=== PATIENT | male | born 1935 | race Caucasian/White ===

== ENCOUNTER → 2016-02-14 | Outpatient (CLI) | payer OTHER, MEDICARE ==
--- NOTE | 2016-02-14 11:25 | CT ---
CT Head (Without Contrast) February 14, 2016 Indication: Headache for one month. Technique: Standard noncontrast head CT protocol utilizing 5 mm thick collimated slices and field of view of 23 cm. Dose reduction techniques were utilized. Comparison: None. Findings: No intracranial hemorrhage, subdural hematoma, mass or swelling. The ventricular system is normal caliber and midline. Dill-white matter attenuation is normal. No evidence of ischemia. The sag ittal sinus and intracranial arterial system have normal density. The paranasal sinuses are clear. Th e right globe is absent. Impression: Normal brain. No intracranial hemorrhage, mass, or hydrocephalus. No explanation for head ache.
== END ==
LOC: CIMAGING 10:10
PROVIDERS: ATTEND Psychiatry & Neurology Neurology
DX: R51 Headache (principal)
CPT/HCPCS: 70450-PO

== ENCOUNTER 2017-02-11 09:41 | Inpatient (IN) | payer OTHER, MEDICARE ==
--- NOTE | 2017-02-11 10:09 | CPEKG ---
Heart Rate: 76 RR Interval: 789 P-R Interval: 300 QRSD Interval: 134 QT Interval: 432 QTC Interval: 486 P [place]: 0 QRS [place]: -50 T Wave [place]: 106 EKG Severity - ABNORMAL ECG - EKG Impression: VENTRICULAR-PACED RHYTHM Electronically Signed By: Ivania Das 11-Feb-2017 15:21:47
[2017-02-11] MEDS ORDERED: NS 1,000 ML IV ONE ×2 (10:17→14:09)
[2017-02-11 10:28] LABS: PLATELET COUNT 156 10^3/uL (150-400)
[2017-02-11] MEDS ORDERED: ONDANSETRON 4 MG/2 ML VIAL IVP ONE (10:55)
--- NOTE | 2017-02-11 10:57 | EDPHY ---
H & P Time Seen by Provider: 02/11/17 10:16 HPI/ROS: CHIEF COMPLAINT: Cough, fever HISTORY OF PRESENT ILLNESS: 81-year-old male presents with cough and fever. Onset of runny nose, sore throat and cough 1 week ago. Associated with myalgias and fever. The cough is productive of yellowish phlegm. This morning he felt so weak that he was unable to get out of bed. He feels that he might fall. He has been tolerating oral fluids and food well, but has a decreased appetite. He received a flu vaccination this year. No shortness of breath REVIEW OF SYSTEMS: Eyes: Vision loss, no acute changes ENT: No sore throat Cardiac: Chest pain with coughing Gastrointestinal: no vomiting, no abdominal pain Genitourinary: no dysuria Skin: No rash Neurological: No headache Psychiatric: No depression Past Medical/Surgical History: Coronary artery disease Vision loss Social History: Retired physician Smoking Status: Never smoked Physical Exam: General Appearance: Alert, pleasant, nontoxic Eyes: Pupils equal and round, conjunctival drainage right eye ENT, Mouth: Mucous membranes dry Neck: Normal inspection Respiratory: Rales at the bases Cardiovascular: Regular rate and rhythm Gastrointestinal: Abdomen is soft and nontender Neurological: A&O, nonfocal, gait not assessed Skin: Warm and dry Extremities: Normal inspection Psychiatric: Mood and affect normal Constitutional: Initial Vital Signs Temperature (C) 36.3 C 02/11/17 09:48 Heart Rate 80 02/11/17 09:48 Respiratory Rate 18 02/11/17 09:48 Blood Pressure 145/83 H 02/11/17 09:48 O2 Sat (%) 90 L 02/11/17 09:48 O2 Delivery Mode Nasal Cannula O2 (L/minute) 3 Allergies/Adverse Reactions: No Known Allergies Allergy (Unverified 02/11/17 09:46) Home Medications: Medication Instructions Recorded Acetaminophen [Tylenol 325mg (*)] 650 mg PO Q8HRS PRN 02/11/17 Aspirin [Aspirin 81mg (*)] 162 mg PO DAILY 02/11/17 Brimonidine 0.15% [ALPHAGAN P 1 drops LEFTEYE Q8 02/11/17 0.15% (RX)] Dorzolamide/Timolol [Cosopt (*)] 1 drops LEFTEYE BID 02/11/17 Latanoprost 0.005% [Xalatan 0.005% 1 drops LEFTEYE HS 02/11/17 (*)] Pantoprazole Sodium [Protonix 40mg 40 mg PO HS 02/11/17 (*)] Simvastatin [Zocor] 20 mg PO HS 02/11/17 Medical Decision Making - Diagnostics Imaging Results: Chest x-ray reveals cardiomegaly, no infiltrate. Imaging: I viewed and interpreted images myself ED Course/Re-evaluation: This patient presents with likely influenza and/or pneumonia. He also appears dehydrated on exam, which may be causing his generalized weakness. IV normal saline 1 L given. Chest x-ray reveals no evidence of pneumonia. Influenza swab is positive. He has been ill for 5 days, so Tamiflu is unlikely to be helpful in this patient. Results discussed with the patient. He continues to be quite weak and has difficulty walking. I will admit him for observation. The hospitalist service was consulted. Differential Diagnosis: Differential diagnosis includes pyelonephritis, cholecystitis, influenza, cellulitis, pneumonia, abscess, meningitis. - Data Points Laboratory Results: Laboratory Results 02/11/17 10:15 02/11/17 10:15 Medications Given: Acetaminophen (Tylenol) 1,000 mg PO Q6 PRN PRN Reason: Pain, Mild/Fever, Can Take PO Stop: 08/10/17 14:08 Last Admin: 02/12/17 05:17 Dose: 1,000 mg Albuterol/Ipratropium (Duoneb) 3 ml IH QID [facility] Stop: 08/10/17 15:59 Last Admin: 02/12/17 06:02 Dose: 3 ml Atorvastatin Calcium (Lipitor) 10 mg PO HS [facility] Stop: 08/10/17 20:59 Last Admin: 02/11/17 21:15 Dose: 10 mg Brimonidine Tartrate (Alphagan P 0.15%) 1 drops LEFTEYE Q8 ALICE Stop: 08/10/17 21:59 Last Admin: 02/12/17 05:18 Dose: 1 drop Dorzolamide/Timolol (Cosopt) 1 drops LEFTEYE BID ALICE Stop: 08/10/17 20:59 Last Admin: 02/11/17 21:14 Dose: 1 drop Guaifenesin (Mucinex) 600 mg PO BID [facility] Stop: 07/03/18 20:59 Last Admin: 02/11/17 21:15 Dose: 600 mg Potassium Chloride/Sodium Chloride (Ns W/ 20 Kcl/L) 1,000 mls @ 75 mls/hr IV CONT ALICE Stop: 08/10/17 14:14 Last Admin: 02/12/17 05:18 Dose: 1,000 mls Latanoprost (Xalatan 0.005%) 1 drops LEFTEYE HS [facility] Stop: 08/10/17 20:59 Last Admin: 02/11/17 21:12 Dose: 1 drop Pantoprazole Sodium (Protonix) 40 mg PO HS [facility] Stop: 08/10/17 20:59 Last Admin: 02/11/17 21:16 Dose: 40 mg Discontinued Medications Acetaminophen (Tylenol) 650 mg PO Q4HRS PRN PRN Reason: Pain, Mild/Fever, Can Take PO Stop: 08/10/17 14:08 Last Admin: 02/11/17 15:38 Dose: 650 mg Acetaminophen (Tylenol) 325 mg PO ONCE ONE Stop: 02/11/17 16:56 Last Admin: 02/11/17 17:05 Dose: 325 mg Albuterol/Ipratropium (Duoneb) 3 ml IH EDNOW ONE Stop: 02/11/17 11:21 Last Admin: 02/11/17 14:01 Dose: Not Given Sodium Chloride (Ns) 1,000 mls @ 0 mls/hr IV ONCE ONE; Wide Open PRN Reason: Protocol Stop: 02/11/17 10:18 Last Admin: 02/11/17 10:58 Dose: 1,000 mls Sodium Chloride (Ns) 1,000 mls @ 3,000 mls/hr IV ONCE ONE Stop: 02/11/17 14:28 Last Admin: 02/11/17 15:39 Dose: 1,000 mls Methylprednisolone Sodium Succinate (Solu-Medrol) 125 mg IVP EDNOW ONE Stop: 02/11/17 11:21 Last Admin: 02/11/17 15:42 Dose: Not Given Ondansetron HCl (Zofran) 4 mg IVP EDNOW ONE Stop: 02/11/17 10:56 Last Admin: 02/11/17 10:58 Dose: 4 mg Departure - Departure Disposition: [facility] Acute Clinical Impression: Influenza A Condition: Fair
[2017-02-11] MEDS ORDERED: IPRATROPIUM/ALBUTEROL 3 ML DEYVIAL IH ONE (11:20)
[2017-02-11] MEDS ORDERED: methylPREDNISolone SOD SUCC 125 MG/2 ML VIAL IVP ONE (11:20)
[2017-02-11] MEDS ORDERED: ONDANSETRON 4 MG/2 ML VIAL IVP PRN (14:09)
[2017-02-11] MEDS ORDERED: ONDANSETRON DISINTEGRATING 4 MG TAB PO PRN (14:09)
[2017-02-11] MEDS ORDERED: IBUPROFEN 200 MG TAB PO PRN (14:09)
[2017-02-11] MEDS ORDERED: ALBUTEROL 3 ML DEYVIAL IH PRN (14:09)
[2017-02-11] MEDS ORDERED: ACETAMINOPHEN 325 MG TAB PO PRN (14:09)
--- NOTE | 2017-02-11 15:09 | GHP ---
[f rep st] HISTORY AND PHYSICAL DATE OF ADMISSION: 02/11/2017 CHIEF COMPLAINT: Fever, chills, cough. HISTORY OF PRESENT ILLNESS: This is a 81-year-old male who presents with 5 days worth of body aches, fevers and chills, and cough. He does have a little bit of shortness of breath. His cough is somew hat productive, mostly clear sputum, sometimes a little bit yellow or green. He gets a little bit of chest pain with coughing. His is also sick. REVIEW OF SYSTEMS: A 10-point review of systems was obtained and was negative. PAST MEDICAL HISTORY: 1. Coronary artery disease, status post stent in 2012. 2. Pacemaker. 3. Glaucoma. SOCIAL HISTORY: No smoking. He is retired physician. FAMILY HISTORY: Reviewed and noncontributory. PHYSICAL EXAMINATION: VITAL SIGNS: Afebrile. Blood pressure is 139/69. Oxygen saturation is 90% o n room air and 94% on 2 L. GENERAL: The patient is well developed, although still appearing in no a pparent distress HEENT: Nonicteric sclerae. Extraocular movements intact. Dry mucous membranes. N BOBBY: Supple. LUNGS: Good effort. Some coarse rhonchi bilaterally. No wheezing. Slightly decreas ed breath sounds. CARDIOVASCULAR: Regular rate and rhythm. No murmurs or gallops. ABDOMEN: Posit aric bowel sounds. Soft, nontender, nondistended. EXTREMITIES: No clubbing, cyanosis, or edema. SK IN: Without rash. Warm, dry, intact. NEUROLOGIC: Alert and oriented x3. Moving all 4 extremities equally. PSYCH: Normal mood and affect. LABORATORY: White count 7, hemoglobin 15. Lactate is normal. Chemistries normal. Flu is positive. Chest x-ray personally reviewed and interpreted shows some cardiomegaly, but no infiltrate. EKG pers onally reviewed and interpreted shows a paced rhythm. ASSESSMENT: This is a 81-year-old male presenting with acute influenza. PLAN: 1. Acute influenza. He has been sick for some time. He has been sick for at least 5 days. I do no t think that Tamiflu will be useful at this point. There is a question if there is another evolving superimposed bacterial infection. We will check a procalcitonin today. We will give IV fluids and n ebulizer treatments and see how he feels. If tomorrow he still not feeling well, could consider some thing like a Z-Nasim. Patient is asking if a Z-Nasim might be helpful. 2. Coronary artery disease. Continue his medications. 3. Pacemaker. /[id number]/MODL
[2017-02-11] MEDS: IPRATROPIUM/ALBUTEROL 3 ML DEYVIAL IH SCH ×2 (15:19→21:54)
[2017-02-11] MEDS: NS W/ 20 KCl/L 1,000 ML IV SCH (16:49)
[2017-02-11] MEDS ORDERED: ACETAMINOPHEN 325 MG TAB PO ONE (16:55)
[2017-02-11] MEDS ORDERED: NON-FORMULARY NEW DRUG (Simvastatin [Zocor] 20 MG) PO SCH (21:00)
[2017-02-11] MEDS: LATANOPROST 0.005% 2.5 ML OPHT DROPS LEFTEYE SCH (21:12)
[2017-02-11] MEDS: BRIMONIDINE 0.15% 5 ML OPHT.BTL LEFTEYE SCH (21:14)
[2017-02-11] MEDS: DORZOLAMIDE/TIMOLOL 10 ML OPHT.BTL LEFTEYE SCH (21:14)
[2017-02-11] MEDS: ATORVASTATIN CALCIUM 10 MG TAB PO SCH (21:15)
[2017-02-11] MEDS: guaiFENesin 600 MG TAB.ER PO SCH (21:15)
[2017-02-11] MEDS: PANTOPRAZOLE SODIUM 40 MG TAB PO SCH (21:16)
[2017-02-11] MEDS: ACETAMINOPHEN 500 MG TAB PO PRN (21:27)
[2017-02-11] MEDS ORDERED: BRIMONIDINE 0.1% 5 ML OPHT.BTL LEFTEYE SCH (22:00)
[2017-02-12] MEDS: ACETAMINOPHEN 500 MG TAB PO PRN ×2 (05:17→16:29)
[2017-02-12] MEDS: BRIMONIDINE 0.15% 5 ML OPHT.BTL LEFTEYE SCH ×3 (05:18→21:27)
[2017-02-12] MEDS: NS W/ 20 KCl/L 1,000 ML IV SCH ×2 (05:18→23:49)
[2017-02-12] MEDS: IPRATROPIUM/ALBUTEROL 3 ML DEYVIAL IH SCH ×4 (06:02→20:31)
[2017-02-12] MEDS: ASPIRIN 81 MG CHEWABLE TAB PO SCH (09:35)
[2017-02-12] MEDS: guaiFENesin 600 MG TAB.ER PO SCH ×2 (09:35→21:27)
[2017-02-12] MEDS: ENOXAPARIN 40 MG/0.4 ML SYR SC SCH (09:35)
[2017-02-12] MEDS: DORZOLAMIDE/TIMOLOL 10 ML OPHT.BTL LEFTEYE SCH ×2 (09:43→21:27)
[2017-02-12] MEDS ORDERED: NITROGLYCERIN 0.4 MG BTL SL PRN (10:19)
[2017-02-12] MEDS ORDERED: CALCIUM CARBONATE 500 MG CHEWABLE TAB PO PRN (10:19)
[2017-02-12] MEDS: PANTOPRAZOLE SODIUM 40 MG TAB PO SCH ×3 (10:33→22:00)
[2017-02-12] MEDS: predniSONE 20 MG TAB PO SCH (10:34)
[2017-02-12] MEDS: AZITHROMYCIN IV 500 MG in D5W 250 ML IV SCH (10:39)
[2017-02-12] MEDS ORDERED: RANITIDINE SYRUP 15 MG/1 ML UDSYR PO SCH (11:30)
--- NOTE | 2017-02-12 11:34 | ASMTCMCOM ---
CM Note CM Note Notes: Patient admitted with probable influenza and pneumonia. 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 I do not anticipate that he will have any discharge needs, but PT/OT have been ordered and are pending. We will follow. Date Signed: 02/12/2017 11:32 AM Electronically Signed By:Savannah Huynh RN
--- NOTE | 2017-02-12 14:53 | HOSPPROG ---
Hospitalist Progress Note Assessment/Plan: 81y male with weakness and cough. First encounter, chart reviewed. #Flu cont supportive care has been sick for days #GERD tums, protonix, zantac chronic needs outpt fu add troponin #Acute hypoxemia in the setting of acute illness #Hx CAD monitor close pt takes 4 nitro a day needs further therapy with cards outpt #Weakness in setting of acute illness PT/OT #Bumped procalcitonin start zpak #Dispo unclear given acute illness change to inpt will remain in hospital another 1-2 days Subjective: Feeling terrible. C/O gerd and weakness. Objective: Vital Signs Temp Pulse Resp BP Pulse Ox 36.5 C 69 20 119/59 L 94 02/12/17 14:28 02/12/17 14:28 02/12/17 14:28 02/12/17 14:28 02/12/17 14:28 02/11/17 02/12/17 02/13/17 05:59 05:59 05:59 Intake Total 4125 Balance 4125 - Physical Exam Constitutional: appears nourished, not in pain, chronically ill appearing Eyes: PERRL, anicteric sclera, EOMI Ears, Nose, Mouth, Throat: moist mucous membranes, hearing normal, ears appear normal Cardiovascular: regular rate and rhythym, No JVD, No edema Respiratory: no respiratory distress, reduced air movement, rhonchi Gastrointestinal: normoactive bowel sounds, No tenderness, No ascites Skin: warm, normal color, No erythema Musculoskeletal: normal joint ROM, no joint effusions, generalized weakness Neurologic: AAOx3 Psychiatric: interacting appropriately, not anxious, not encephalopathic, thought process linear ICD10 Worksheet Patient Problems: Problems Problem Status Onset Influenza A Acute
--- NOTE | 2017-02-12 16:02 | PDMN ---
Medical Necessity Medical necessity: change to IP; los>2mn for influenza, with continued hypoxemia with O2 @ 6L, weakness, GERD symptoms; initiate abx, PT/OT evas, check troponin, and continue supportive care; comorbid CAD ; per order and progress note 02/12/17
[2017-02-12] MEDS: LATANOPROST 0.005% 2.5 ML OPHT DROPS LEFTEYE SCH (21:27)
[2017-02-12] MEDS: ATORVASTATIN CALCIUM 10 MG TAB PO SCH (21:27)
[2017-02-13] MEDS: ACETAMINOPHEN 500 MG TAB PO PRN ×3 (03:21→21:13)
[2017-02-13] MEDS: IPRATROPIUM/ALBUTEROL 3 ML DEYVIAL IH SCH ×4 (05:41→21:53)
[2017-02-13] MEDS: BRIMONIDINE 0.15% 5 ML OPHT.BTL LEFTEYE SCH ×3 (06:20→21:06)
[2017-02-13] MEDS: ASPIRIN 81 MG CHEWABLE TAB PO SCH (08:45)
[2017-02-13] MEDS: guaiFENesin 600 MG TAB.ER PO SCH ×2 (08:45→21:08)
[2017-02-13] MEDS: predniSONE 20 MG TAB PO SCH (08:46)
[2017-02-13] MEDS: PANTOPRAZOLE SODIUM 40 MG TAB PO SCH ×2 (08:46→21:08)
[2017-02-13] MEDS: AZITHROMYCIN IV 500 MG in D5W 250 ML IV SCH (08:47)
[2017-02-13] MEDS: ENOXAPARIN 40 MG/0.4 ML SYR SC SCH (08:47)
[2017-02-13] MEDS: DORZOLAMIDE/TIMOLOL 10 ML OPHT.BTL LEFTEYE SCH ×2 (08:47→21:06)
[2017-02-13] MEDS: RANITIDINE HCL 150 MG/10 ML UDCUP PO SCH (08:48)
--- NOTE | 2017-02-13 12:54 | HOSPPROG ---
Hospitalist Progress Note Assessment/Plan: 81 yo male admited with COB and cough, weakness. Noted to be hypoxic, SOB, purulent cough still. continues to feel weak and cough. Patient new to me today. chart reviewed #Flu cont supportive care has been sick for days #GERD tums, protonix, zantac chronic needs outpt fu add troponin #Acute hypoxemia in the setting of acute illness. Does not use O2 at home, no h/o tobacco or COPD #Hx CAD: no chest pain. Had chest pain only with cough. No exertional chest pain. h/o stent in RCA 08/2016 monitor close pt takes 4 nitro a day needs further therapy with cards outpt #Weakness in setting of acute illness PT/OT #Bumped procalcitonin start zpak #Dispo unclear given acute illness change to inpt will remain in hospital another 1-2 days Subjective: appears weak and tired, cough, purulent cough Objective: Vital Signs Temp Pulse Resp BP Pulse Ox 36.3 C 60 18 108/54 L 95 02/13/17 11:11 02/13/17 11:11 02/13/17 11:11 02/13/17 11:11 02/13/17 11:11 02/12/17 02/13/17 02/14/17 05:59 05:59 05:59 Intake Total 879 842 Output Total 790 Balance 89 842 - Time Spent With Patient Time Spent with Patient: greater than 35 minutes Time Spent with Patient: Greater than 35 minutes spent on this patients care, greater than 50% of time spent counseling, educating, and coordinating care regarding the above mentioned plan. - Pending Discharge Pending Discharge Within 24 Hours: No Pending Discharge Within 48 Hours: No - Physical Exam Constitutional: other (acute ill appearing) Eyes: PERRL Ears, Nose, Mouth, Throat: moist mucous membranes Cardiovascular: regular rate and rhythym, systolic murmur Respiratory: reduced air movement, inspiratory crackles, bronchial breath sounds , rhonchi Gastrointestinal: normoactive bowel sounds, soft, non-tender abdomen, no palpable masses Genitourinary: no bladder fullness Skin: warm Musculoskeletal: generalized weakness Neurologic: AAOx3, CN II-XII Intact Psychiatric: interacting appropriately ICD10 Worksheet Patient Problems: Problems Problem Status Onset Influenza A Acute
[2017-02-13] MEDS: NS W/ 20 KCl/L 1,000 ML IV SCH (14:06)
[2017-02-13] MEDS: LATANOPROST 0.005% 2.5 ML OPHT DROPS LEFTEYE SCH (21:06)
[2017-02-13] MEDS: ATORVASTATIN CALCIUM 10 MG TAB PO SCH (21:08)
[2017-02-14] MEDS: BRIMONIDINE 0.15% 5 ML OPHT.BTL LEFTEYE SCH ×3 (06:25→20:59)
[2017-02-14] MEDS: IPRATROPIUM/ALBUTEROL 3 ML DEYVIAL IH SCH ×4 (06:30→21:17)
[2017-02-14] MEDS: ACETAMINOPHEN 500 MG TAB PO PRN ×2 (08:39→21:12)
[2017-02-14] MEDS: ASPIRIN 81 MG CHEWABLE TAB PO SCH (08:41)
[2017-02-14] MEDS: guaiFENesin 600 MG TAB.ER PO SCH ×2 (08:41→20:55)
[2017-02-14] MEDS: predniSONE 20 MG TAB PO SCH (08:41)
[2017-02-14] MEDS: AZITHROMYCIN IV 500 MG in D5W 250 ML IV SCH (08:44)
[2017-02-14] MEDS: ENOXAPARIN 40 MG/0.4 ML SYR SC SCH (08:44)
[2017-02-14] MEDS: DORZOLAMIDE/TIMOLOL 10 ML OPHT.BTL LEFTEYE SCH ×2 (08:56→20:58)
[2017-02-14] MEDS: RANITIDINE HCL 150 MG/10 ML UDCUP PO SCH (09:45)
--- NOTE | 2017-02-14 15:35 | HOSPPROG ---
Hospitalist Progress Note Assessment/Plan: 81 yo male admited with COB and cough, weakness. Noted to be hypoxic, SOB, purulent cough still. continues to feel weak and cough. Cough is a major difficulty along with hypoxemia as the both continue. Cough capping awake all last night. -Flu: Influenza positive on admission on 02/12: S the patient is sick enough to be in the hospital going to start Tamiflu today as he persists with cough some bronchospasm and hypoxemia. Though there is no clear evidence that would improve the matter it certainly can't heard. -cough, persistent: There is a history of coronary disease with a stent in the RCA though no history of CHF. He does have a persistent cough and or rales in both lungs. JVD is does not appear to be elevated. Plan to stop IV fluids and obtain a cardiac echo and continue his current pulmonary care and antitussives care. Patient's procalcitonin was slightly elevated and he was started on a Z- Nasim and he is in his 2nd day. He slowly improving -GERD: This is a chronic condition for which she takes Tums Protonix and Zantac. -Acute hypoxemia: This is new as the patient normally is physically active and has run in races recently. He does not usually require O2. As he improves he may require home O2. There is no history of tobacco or COPD. Hx CAD: no chest pain. Had chest pain only with cough. No exertional chest pain. h/o stent in RCA 08/2016. Cardiac echo today. He is known to take for nitroglycerin a day for prox complaints of chest pain. 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 PT is involve the knee has a can a walk in the pink with O2. -Dispo unclear given acute illness change to inpt will remain in hospital another 1-2 days Subjective: I was unable to sleep all last night due to coughing. Denies ani chest pain no hemoptysis no nausea vomiting or diarrhea he is eating a little in taking good fluid intake Objective: Vital Signs Temp Pulse Resp BP Pulse Ox 36.9 C 72 16 131/77 H 93 02/14/17 12:00 02/14/17 12:00 02/14/17 12:00 02/14/17 12:00 02/14/17 12:00 02/13/17 02/14/1702/15/18 05:59 05:59 05:59 Intake Total 879 0902 Output Total 790 917 250 Balance 89 2167 -250 - Time Spent With Patient Time Spent with Patient: greater than 35 minutes Time Spent with Patient: Greater than 35 minutes spent on this patients care, greater than 50% of time spent counseling, educating, and coordinating care regarding the above mentioned plan. - Pending Discharge Pending Discharge Within 24 Hours: No Pending Discharge Within 48 Hours: No - Physical Exam Constitutional: chronically ill appearing Eyes: PERRL, other (Right eye is been lost vision during a surgery for glaucoma. ) Ears, Nose, Mouth, Throat: moist mucous membranes, hard of hearing Cardiovascular: regular rate and rhythym, no murmur, rub, or gallop Respiratory: reduced air movement, inspiratory crackles, bronchial breath sounds , rhonchi Gastrointestinal: normoactive bowel sounds, soft, non-tender abdomen, no palpable masses Genitourinary: no bladder fullness Skin: warm Musculoskeletal: generalized weakness Neurologic: AAOx3, CN II-XII Intact, other (No vision in the right eye) Psychiatric: interacting appropriately ICD10 Worksheet Patient Problems: Problems Problem Status Onset Influenza A Acute
[2017-02-14] MEDS ORDERED: guaiFENesin/CODEINE PHOS 10 ML UDCUP PO PRN (15:38)
[2017-02-14] MEDS: OSELTAMIVIR PHOSPHATE 75 MG CAP PO SCH (18:31)
[2017-02-14] MEDS: ATORVASTATIN CALCIUM 10 MG TAB PO SCH (20:55)
[2017-02-14] MEDS: PANTOPRAZOLE SODIUM 40 MG TAB PO SCH (20:55)
[2017-02-14] MEDS: LATANOPROST 0.005% 2.5 ML OPHT DROPS LEFTEYE SCH (20:58)
[2017-02-15] MEDS: IPRATROPIUM/ALBUTEROL 3 ML DEYVIAL IH SCH ×4 (05:40→20:36)
[2017-02-15 05:57] LABS: PLATELET COUNT 267 10^3/uL (150-400)
[2017-02-15] MEDS: BRIMONIDINE 0.15% 5 ML OPHT.BTL LEFTEYE SCH ×3 (06:33→21:08)
[2017-02-15] MEDS: predniSONE 20 MG TAB PO SCH (09:30)
[2017-02-15] MEDS: DORZOLAMIDE/TIMOLOL 10 ML OPHT.BTL LEFTEYE SCH ×2 (09:31→21:08)
[2017-02-15] MEDS: OSELTAMIVIR PHOSPHATE 75 MG CAP PO SCH ×2 (09:31→17:05)
[2017-02-15] MEDS: ASPIRIN 81 MG CHEWABLE TAB PO SCH (09:31)
[2017-02-15] MEDS: guaiFENesin 600 MG TAB.ER PO SCH ×2 (09:31→21:05)
[2017-02-15] MEDS: ENOXAPARIN 40 MG/0.4 ML SYR SC SCH (09:31)
[2017-02-15] MEDS: RANITIDINE HCL 150 MG/10 ML UDCUP PO SCH (09:31)
[2017-02-15] MEDS: AZITHROMYCIN IV 500 MG in D5W 250 ML IV SCH (09:33)
--- NOTE | 2017-02-15 11:37 | ECHO ---
[email or web address] [address] [address] Main: [phone] Fax: Transthoracic Echocardiogram Name: JOHN OLIVIA MR#: [id number] Study Date: 02/15/2017 Study Time: 08:48 AM Date of : 1935 Age: 81 year(s) Height: 172.7 cm (68 in.) Weight: 82.55 kg (182 lb.) BSA: 1.96 m2 Gender: Male Examination: Echo Indication: Pacemaker, Flu, Shortness of breath, Hypoxia Image Quality: Contrast: Requested by: Romel Michaud BP: 136 mmHg/69 mmHg Heart Rate: Rhythm: Normal sinus rhythm Indication: Pacemaker, Flu, Shortness of breath, Hypoxia Procedure Staff Senior Manager [employer]: Trevon Alexis Reading Physician: Fredi Steve Requesting Provider: Conclusions: Normal size left ventricle. EF is 63 %. Normal size right ventricle. There is a pacemaker lead noted in the right ventricle. The left atrium is mildly dilated. Mild to moderate mitral regurgitation. Trivial to mild tricuspid valve regurgitation. The pulmonic valve is normal in appearance and function. Measurements: Chambers Valvular Assessment AV/MV Valvular Assessment TV/PV Normal Normal Normal Name Value Range Name Value Range Name Value Range Ao Dionne (MM): 3.7 cm (2.2 cm-3.7 AV Vmax: 1.56 m/s (1 m/s-1.7 TR Vmax: 3.18 mm/s ( - ) cm) m/s) TR PGmax: 40 mmHg ( - ) IVSd (2D): 1.0 cm (0.6 cm-1.1 AV maxP mmHg ( - ) syst. PAP: 45 mmHg ( - ) cm) AV meanP mmHg ( - ) PV Vmax: 0.76 m/s (0.6 m/s-0.9 LVDd (2D): 5.0 cm (4.2 cm-5.9 B[place]LEY (VTI): 1.6 cm ( - ) m/s) cm) MV E Vmax: 0.83 m/s ( - ) PV PGmax: 2 mmHg ( - ) LVDs (2D): 3.3 cm (2.1 cm-4 MV A Vmax: 0.68 m/s ( - ) cm) MV E/A: 1.22 ( - ) LVPWd (2D): 1.0 cm (0.6 cm-1 cm) MV meanP mmHg ( - ) LVOTd 2.0 cm 2.0 cm mm MVA (Vmax): 1.8 m/s ( - ) LVEF (2D): 63 (>=54 %) Continued Measurements: Chambers Valvular Assessment AV/MV Valvular Assessment TV/PV Name Value Name Value Name Value Patient: JOHN OLIVIA Study Date: 02/15/2017 Page 1 of 2 08:48 AM LADs Lon.9 cm MV Annulus: 3.4 cm CVP (est.): 5 mmHg LA Area: 23.7 cm2 MV E' Septal: 0.07 m/s LA Volume: 92 ml MV E/E' Septal: 12.30 LA Volume Index: 46.9 ml/m2 MV E/E' Lateral: 10.90 MV VTI: 33.20 cm MR ERO: 0.100 cm2 MR PISA radius: 5 mm MR Reg. Volume: 22 ml MR Reg. Fraction: 7 % Findings: Left Ventricle: Normal size left ventricle. Normal global systolic LV function. EF is 63 %. Right Ventricle: Normal size right ventricle. There is a pacemaker lead noted in the right ventricle. Left Atrium: The left atrium is mildly dilated. Right Atrium: The right atrium is normal in size. Mitral Valve: The mitral valve is normal in appearance and function. Mild to moderate mitral regurgitation. Aortic Valve: The aortic valve is normal in appearance and function. The aortic valve is tri-leaflet. Tricuspid Valve: Trivial to mild tricuspid valve regurgitation. Pulmonic Valve: The pulmonic valve is normal in appearance and function. Aorta: The aorta is normal. Pericardium: No pericardial effusion. Exam Comments: Septal wall motion consistent with pacemaker rhythm.. (No Signature Object) Patient: JOHN OLIVIA Study Date: 02/15/2017 Page 2 of 2 08:48 AM [id number]
--- NOTE | 2017-02-15 11:52 | HOSPPROG ---
Hospitalist Progress Note Assessment/Plan: 81 yo male admitted with SOB and cough, weakness. Noted to be hypoxic, SOB, purulent cough still. Continues to feel weak and cough. Cough is a major difficulty along with hypoxemia as the both continue. -Flu: Influenza positive on admission on 02/12: the patient is sick enough to be in the hospital on Tamiflu persists with cough some bronchospasm and hypoxemia. -cough, persistent: There is a history of coronary disease with a stent in the RCA though no history of CHF. ECHO stable EF 63% Patient's procalcitonin was slightly elevated and he was started on a Z-Nasim and he is in his 2nd day. He slowly improving -GERD: This is a chronic condition for which she takes Tums Protonix and Zantac. -Acute hypoxemia: This is new as the patient normally is physically active and has run in races recently. He does not usually require O2. There is no history of tobacco or COPD. Hx CAD: no chest pain. Had chest pain only with cough. No exertional chest pain. h/o stent in RCA 08/2016. Cardiac echo stable. He is known to take for nitroglycerin a day for prox complaints of chest pain. 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 PT is involve the knee has a can a walk in the pink with O2. -Dispo unclear given acute illness will remain in hospital another 1-2 days Subjective: Feeling a bit better. Still having coughing with c/o weakness. Objective: Vital Signs Temp Pulse Resp BP Pulse Ox 36.8 C 60 18 134/80 H 91 L 02/15/17 11:15 02/15/17 11:15 02/15/17 11:15 02/15/17 11:15 02/15/17 11:15 Laboratory Results 02/15/17 05:33 02/15/17 05:33 02/14/17 02/15/17 02/16/17 05:59 05:59 05:59 Intake Total 2342 300 Output Total 175 950 950 Balance 0827 -433 -563 - Physical Exam Constitutional: appears nourished, not in pain Eyes: PERRL, anicteric sclera Ears, Nose, Mouth, Throat: moist mucous membranes, hearing normal Cardiovascular: regular rate and rhythym, No JVD, No edema Respiratory: no respiratory distress, reduced air movement, rhonchi Gastrointestinal: normoactive bowel sounds, No tenderness, No ascites Skin: warm, normal color, No erythema Musculoskeletal: normal joint ROM, no joint effusions, generalized weakness Neurologic: AAOx3 Psychiatric: interacting appropriately, not anxious, not encephalopathic, thought process linear ICD10 Worksheet Patient Problems: Problems Problem Status Onset Influenza A Acute
--- NOTE | 2017-02-15 16:54 | ASMTCMCOM ---
CM Note CM Note Notes: CM met w/ pt for dispo planning. PT is recommending HC. OT is clearing pt to go home independent. Pt reports that he will not have any needs at time of d/c. Pt reports that he was working out 3x a week before he got sick. CM available for changes. Plan: Independent w/ Date Signed: 02/15/2017 04:54 PM Electronically Signed By:JOHN Mishra
[2017-02-15] MEDS: PANTOPRAZOLE SODIUM 40 MG TAB PO SCH (21:05)
[2017-02-15] MEDS: ATORVASTATIN CALCIUM 10 MG TAB PO SCH (21:05)
[2017-02-15] MEDS: LATANOPROST 0.005% 2.5 ML OPHT DROPS LEFTEYE SCH (21:08)
[2017-02-15] MEDS: ACETAMINOPHEN 500 MG TAB PO PRN (21:20)
[2017-02-16] MEDS: IPRATROPIUM/ALBUTEROL 3 ML DEYVIAL IH SCH ×4 (05:53→23:11)
[2017-02-16] MEDS: BRIMONIDINE 0.15% 5 ML OPHT.BTL LEFTEYE SCH ×3 (05:54→21:22)
[2017-02-16] MEDS ORDERED: THROMBIN (BOVINE) 5,000 UNIT VIAL TP ONE (08:44)
[2017-02-16] MEDS ORDERED: BUPIVACAINE 0.25% 30 ML SDV ONE (08:44)
[2017-02-16] MEDS ORDERED: CALCIUM CHLORIDE 1 GM/10 ML INJ ONE (08:45)
[2017-02-16] MEDS ORDERED: OPIUM/BELLADONNA ALKALO SUPP PR ONE (08:45)
[2017-02-16] MEDS ORDERED: POLYMYXIN B SULFATE 500,000 UNIT/10 ML SYR IRR ONE (08:46)
[2017-02-16] MEDS: guaiFENesin 600 MG TAB.ER PO SCH ×2 (09:04→21:21)
[2017-02-16] MEDS: OSELTAMIVIR PHOSPHATE 75 MG CAP PO SCH ×2 (09:04→18:10)
[2017-02-16] MEDS: predniSONE 20 MG TAB PO SCH (09:05)
[2017-02-16] MEDS: RANITIDINE HCL 150 MG/10 ML UDCUP PO SCH (09:06)
[2017-02-16] MEDS: ASPIRIN 81 MG CHEWABLE TAB PO SCH (09:06)
[2017-02-16] MEDS: AZITHROMYCIN IV 500 MG in D5W 250 ML IV SCH (09:08)
[2017-02-16] MEDS: ENOXAPARIN 40 MG/0.4 ML SYR SC SCH (09:08)
[2017-02-16] MEDS: ACETAMINOPHEN 500 MG TAB PO PRN ×3 (09:38→21:29)
[2017-02-16] MEDS: DORZOLAMIDE/TIMOLOL 10 ML OPHT.BTL LEFTEYE SCH ×2 (09:39→21:22)
--- NOTE | 2017-02-16 14:24 | HOSPPROG ---
Hospitalist Progress Note Assessment/Plan: 81 yo male admitted with SOB and cough, weakness. Noted to be hypoxic, SOB, purulent cough still. Continues to feel weak and cough. Cough is a major difficulty along with hypoxemia as the both continue. -Flu: Influenza positive on admission on 02/12: the patient is sick enough to be in the hospital on Tamiflu persists with cough some bronchospasm and hypoxemia. -cough, persistent: There is a history of coronary disease with a stent in the RCA though no history of CHF. ECHO stable EF 63% Patient's procalcitonin was slightly elevated and he was started on a Z-Nasim and he is in his 2nd day. He slowly improving -GERD: This is a chronic condition for which she takes Tums Protonix and Zantac. -Acute hypoxemia: This is new as the patient normally is physically active and has run in races recently. He does not usually require O2. There is no history of tobacco or COPD. D/W Dr Dominguez, pulmonology consult today Hx CAD: no chest pain. Had chest pain only with cough. No exertional chest pain. h/o stent in RCA 08/2016. Cardiac echo stable. He is known to take for nitroglycerin a day for prox complaints of chest pain. 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 PT is involve the knee has a can a walk in the pink with O2. -Dispo unclear given acute illness will remain in hospital another 1-2 days Subjective: Up in chair. Feels very weak. Still having cough. Objective: Vital Signs Temp Pulse Resp BP Pulse Ox 37.0 C 58 L 20 148/67 H 91 L 02/16/17 08:00 02/16/17 10:35 02/16/17 10:35 02/16/17 08:00 02/16/17 10:35 Laboratory Results 02/15/17 05:33 02/15/17 05:33 02/15/17 02/16/17 02/17/17 05:59 05:59 05:59 Intake Total 300 Output Total 950 950 500 Balance -650 950 -500 - Physical Exam Constitutional: appears nourished, uncomfortable Eyes: anicteric sclera, No PERRL, No EOMI Ears, Nose, Mouth, Throat: moist mucous membranes, hearing normal, ears appear normal Cardiovascular: regular rate and rhythym, No JVD, No edema Respiratory: no respiratory distress, expiratory wheeze, rhonchi Gastrointestinal: normoactive bowel sounds, No tenderness, No ascites Skin: warm, normal color, No erythema Musculoskeletal: normal joint ROM, no joint effusions, generalized weakness Neurologic: AAOx3 Psychiatric: not anxious, not encephalopathic, thought process linear ICD10 Worksheet Patient Problems: Problems Problem Status Onset Influenza A Acute
[2017-02-16] MEDS: PANTOPRAZOLE SODIUM 40 MG TAB PO SCH (21:21)
[2017-02-16] MEDS: ATORVASTATIN CALCIUM 10 MG TAB PO SCH (21:21)
[2017-02-16] MEDS: LATANOPROST 0.005% 2.5 ML OPHT DROPS LEFTEYE SCH (21:22)
--- NOTE | 2017-02-17 03:29 | GCON ---
[f rep st] CONSULTATION DATE OF CONSULTATION: 02/16/2017 REASON FOR CONSULTATION: Influenza, bronchopneumonia which shortness of breath and bronchospasm. HISTORY: The patient is a relatively healthy 81-year-old who was admitted on February 11 with increasi ng cough and shortness of breath. This was associated with generalized achiness, fevers and chills. He had been sick for approximately 1 week with progressive symptoms prior to his admission. He has no history of underlying pulmonary disease. He does have a cardiac pacemaker. Over his ex tended family was here for the holidays. His daughter was sick and was subsequently diagnosed appare ntly with influenza A. His and his son also became sick. He was bringing up some colored mucus at times. On admission, saturations were 90% on room air. Decreased breath sounds were noted with some rhonchi , no wheezes. Chest x-ray showed some increased markings compared to his last x-ray in 2014. No den se focal infiltrates were noted. Heart size is relatively large. A pacemaker lead is in place. [facility] te blood cell count was normal on admission as was lactic acid. Influenza A was documented by PCR. No subtyping was done. Blood cultures have been negative. He was started on Tamiflu as well as azithromycin. He remains on both of these. Secondary to his co ugh, pulmonary symptoms and some intermittent wheezing, he was started on bronchodilator therapies an d prednisone. Since admission, he has gradually improved somewhat. Today is his best day so far, and he hopes to g o home tomorrow. He still has some cough and mucus and episodes of chest tightness. He is up walkin g in the halls intermittently. He denies current fevers. PAST MEDICAL HISTORY: Remarkable for sick sinus syndrome, hyperlipidemia, gastroesophageal reflux di sease, and glaucoma. ALLERGIES: No known drug allergies. SOCIAL HISTORY: Noncontributory. He is a never smoker. He has been very active, competing in [employer] until the age of 72. He continues to work out 3 times per week during difficult aerobic workou t at the [facility] [place] 3 times per week. FAMILY HISTORY: Negative/noncontributory. REVIEW OF SYSTEMS: A 10-point review of systems is negative except as noted above. PHYSICAL EXAMINATION: GENERAL: A pleasant gentleman who is sitting up in a chair. He is comfortabl e, in no acute distress. Oxygen is in place at 1 to 2 L. HEENT: Unremarkable. There is no jugular venous distention. CHEST: Clear, with coarse breath sounds. He has some central congestion with c ough. There are no significant wheezes; however, expiratory phase is mildly prolonged. There are so me bibasilar rales, equal bilaterally. HEART: Regular in rate and rhythm. There is a soft systolic murmur. ABDOMEN: Somewhat overweight, soft nontender. Bowel sounds present. EXTREMITIES: Unrema rkable for edema, cords, or tenderness. NEUROLOGIC: Examination is intact. ASSESSMENT: 1. Influenza A, bronchopneumonia. 2. Cough, associated with some bronchospasm and airways inflammation. On bronchodilator treatment a nd steroids. 3. Possible bacterial bronchopneumonia. This seems less likely, but cannot be absolutely excluded. I agree with a 5-day course of azithromycin. 4. 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 Ejection fra ction is normal and stable at 63%. Echo was otherwise within normal limits. PLAN/RECOMMENDATIONS: Current medications will be continued. These include Tamiflu, azithromycin, b ronchodilator therapies, steroids, and mucolytics. I have encouraged him to increase ambulation. I will plan on seeing him tomorrow and will make a decision at that time with the hospitalist about pos sibly discharging the patient to home. I would be happy to follow him in the office as an outpatient until he is back to baseline. All of the above was discussed with the patient. He was reassured. His current course is normal for individuals with the flu, and he should not be discouraged. /[id number]/MODL
[2017-02-17] MEDS: IPRATROPIUM/ALBUTEROL 3 ML DEYVIAL IH SCH ×2 (05:20→11:14)
[2017-02-17 08:50] VITALS: BP 132/82; TEMP 98.4
[2017-02-17] MEDS: BRIMONIDINE 0.15% 5 ML OPHT.BTL LEFTEYE SCH ×2 (09:10→13:02)
[2017-02-17] MEDS: ASPIRIN 81 MG CHEWABLE TAB PO SCH (09:11)
[2017-02-17] MEDS: guaiFENesin 600 MG TAB.ER PO SCH (09:13)
[2017-02-17] MEDS: OSELTAMIVIR PHOSPHATE 75 MG CAP PO SCH (09:14)
[2017-02-17] MEDS: RANITIDINE HCL 150 MG/10 ML UDCUP PO SCH (09:14)
[2017-02-17] MEDS: predniSONE 20 MG TAB PO SCH (09:14)
[2017-02-17] MEDS: ENOXAPARIN 40 MG/0.4 ML SYR SC SCH (09:15)
[2017-02-17] MEDS: DORZOLAMIDE/TIMOLOL 10 ML OPHT.BTL LEFTEYE SCH (09:19)
[2017-02-17] MEDS: AZITHROMYCIN IV 500 MG in D5W 250 ML IV SCH (09:48)
--- NOTE | 2017-02-17 10:41 | PDHOMEO2F ---
Home Oxygen Face to Face Home Orders: I certify that a physician or a nurse practitioner or physician's staff assistant has had a [id number] encounter with this patient on the date of this order due to the diagnosis listed, which relates to the primary reason the patient requires home oxygen. Alternative treatments have been tried, or considered, and deemed ineffective. It is anticipated that supplemental oxygen will result in improvement with treatment. Home oxygen qualifying diagnosis: PNA SpO2 on room air (%): 86 Frequency of home oxygen needed: continuous Home oxygen liters per minute: 2 Home oxygen delivery device: nasal cannula Concentrator: Yes E-tanks for mobility and back up: Yes If ordering portable O2, is the patient mobile in the home?: Yes I certify that, based on these findings, the home oxygen is medically necessary for this patient for the following length of time. Length of time home oxygen needed: 1 month
[2017-02-17 11:21] VITALS: PULSE 68; RESP 16; O2SAT 94
--- NOTE | 2017-02-17 11:35 | SOAPPROG ---
SOAP Progress Note Assessment/Plan: Assessment: Influenza A bronchopneumonia. Improving. Still has some congestion. Cannot rule out a bacterial process as well. He has completed a course of azithromycin. Has a few more doses of Tamiflu to go. Hypoxemia: Secondary to 1. Improving. No history of underlying lung disease. He does have some rales posteriorly on exam. These may be secondary to his current infection or may be somewhat chronic and nonspecific. He has been quite active, and any significant fibrotic process is not felt to be present. History of sick sinus syndrome and pacemaker. History of gastroesophageal reflux disease. Plan: I agree with discharge home today. He will need oxygen 2 L at night and as needed during the day. He does not need to use oxygen if his saturation is approximately 88% or above during the day. Recommend a short prednisone taper and p.r.n. albuterol by metered-dose inhaler on discharge, and the completion of his Tamiflu. I will plan on seeing him back in the office in 2-3 weeks. Spirometry can be done then and a follow-up chest x-ray considered in the future if indicated. All the above was discussed with the patient and the hospitalist. Subjective: Feels better overall. Still with some cough and central pulmonary congestion. Unable to bring up much mucus. Dyspnea on exertion has improved. Wants to go home Objective: Vital Signs Temp Pulse Resp BP Pulse Ox 36.9 C 68 16 132/82 H 94 02/17/17 08:00 02/17/17 11:17 02/17/17 11:17 02/17/17 08:00 02/17/17 11:17 Laboratory Results 02/15/17 05:33 02/15/17 05:33 02/16/17 02/17/17 02/18/17 05:59 05:59 05:59 Intake Total 600 Output Total 950 900 Balance -950 -300 Physical Exam - Physical Exam General Appearance: alert, no apparent distress EENT: PERRL/EOMI (On left. Blind right eye.), other (Oxygen in place at 2 L) Neck: normal inspection (No obvious JVD) Respiratory: lungs clear (Anteriorly), decreased breath sounds (At the bases bilaterally), rales (Rales present bilaterally in the lower mid lung zones, few comma nonspecific), wheezing (Minimal), No rhonchi (Mild central congestion with cough) Cardiac/Chest: regular rate, rhythm Abdomen: normal bowel sounds, non-tender, soft Skin: normal color, warm/dry Extremities: No pedal edema Neuro/Psych: no motor/sensory deficits, No cognition abnormalities ICD10 Worksheet Patient Problems: Problems Problem Status Onset Influenza A Acute
--- NOTE | 2017-02-17 16:57 | ASDISCHSUM ---
Discharge Information Plan Status:Home with No Needs Medically Cleared to Leave: Discharge Date:02/17/2017 01:25 PM CM D/C Disposition:Home, Routine, Self-Care ADT D/C Disposition:Home, Routine, Self-Care Projected Discharge Date:02/17/2017 01:25 PM Transportation at D/C:Family Discharge Delay Reason: Follow-Up Date:02/17/2017 01:25 PM Discharge Slot: Final Diagnosis: Placement Information Patient Contact Information Contact Name:RADHA Relationship: Address:[facility] [address] [place] Work Phone: [facility]:[place] Alternate Phone: [facility]/Zip Code:[place] [address] Email: Financial Information Financial Class: Primary Plan Desc:MEDICARE INPATIENT Primary Plan Number:[id number] Secondary Plan Desc:[employer]/MDR SUPPLEMENT Secondary Plan Number:[id number] Assessment Information [facility] CM Progress Note CM Note CM Note Notes: Patient admitted with probable influenza and pneumonia. 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 I do not anticipate that he will have any discharge needs, but PT/OT have been ordered and are pending. We will follow. Date Signed: 02/12/2017 11:32 AM Electronically Signed By:Savannah Huynh RN [facility] CM Progress Note CM Note CM Note Notes: CM met w/ pt for dispo planning. PT is recommending HC. OT is clearing pt to go home independent. Pt reports that he will not have any needs at time of d/c. Pt reports that he was working out 3x a week before he got sick. CM available for changes. Plan: Independent w/ Date Signed: 02/15/2017 04:54 PM Electronically Signed By:JOHN Mishra Intervention Information Intervention Type:*Incorrect Registration Date of Service:02/11/2017 03:56 PM Patient Type:Inpatient Staff Member:CHERELLE Villegas, Kenzie Hours: Discipline: Severity: Comment: Intervention Type:*IM-Signed Date of Service:02/17/2017 12:16 PM Patient Type:Inpatient Staff Member:Che Ferreira Hours: Discipline: Severity: Comment:
--- NOTE | 2017-02-17 17:11 | GDS ---
[f rep st] DISCHARGE SUMMARY DISCHARGE DIAGNOSES: 1. Flu. 2. Upper respiratory infection. 3. Gastroesophageal reflux disease. 4. Acute hypoxemic respiratory failure. 5. Coronary artery disease. 6. Weakness. CONSULTATIONS: Dr. Dominguez of Pulmonology. STUDIES AND PROCEDURES DONE: Chest x-ray. PHYSICAL EXAM: GENERAL: The patient is alert. VITAL SIGNS: Afebrile at 36.9, pulse is 79, respira tory rate is 18, blood pressure is 132/82, he is saturating 87% on room air. I have seen and evaluated the patient on the day of discharge. HOSPITAL COURSE: The patient is a 81-year-old male, who presented to the emergency room with complai nts of shortness of breath and cough. He was evaluated and diagnosed with: 1. Influenza. During this hospitalization, he was initiated on Tamiflu and received supportive care . 2. Upper respiratory infection. He did receive azithromycin total of 5 days during this hospital co urse. Echocardiogram was performed with ejection fraction of 63%. 3. History of GERD. Protonix, Zantac, and Tums have been continued during this hospital course. He states he is at his baseline with regard to this. 4. Acute hypoxemic respiratory failure. This is in the setting of upper respiratory infection as we ll as flu. He has been seen by Dr. Dominguez of Pulmonology. He will follow with him in the outpatient setting. 5. History of coronary artery disease. No interventions or chest pain or signs of complication were noted at this time during this hospitalization. 6. Weakness. Physical Therapy and Occupational Therapy have been working with the patient. DISPOSITION: The patient will be discharged home independently. Home health care has been offered a t the time of disposition. However, he is denying. He will require supplemental oxygen in the outpa tient setting due to his acute illness. He may have some underlying chronic lung involvement. DISCHARGE MEDICATIONS: Please refer to EMR form. I have provided the patient a prescription for Watt iflu, a total of 4 more doses. I have not discontinued the patient's previously prescribed home medi cations to the best of my knowledge. FOLLOWUP: He will follow up with Dr. Donnell Dominguez, as well as Dr. Trevon Moctezuma, his primary care physi nathaniel. TIME SPENT WITH PATIENT: I spent greater than 35 minutes in the care, coordination, and management o f patient's disposition. /[id number]/MODL
== END 2017-02-17 13:25 | disposition home or self-care (01) | DRG 193 ==
LOC: INTOOBSV 12:02 → F3E 13:16 → OBSVTOIN 02-12 14:55
PROVIDERS: ADMIT Internal Medicine; ATTEND Internal Medicine
DX: J10.1 Influenza due to other identified influenza virus with other respiratory manifestations (principal); J96.01 Acute respiratory failure with hypoxia; J18.0 Bronchopneumonia, unspecified organism; K21.9 Gastro-esophageal reflux disease without esophagitis; I25.10 Atherosclerotic heart disease of native coronary artery without angina pectoris; H40.9 Unspecified glaucoma; Z95.0 Presence of cardiac pacemaker
CPT/HCPCS: 96374; 97116-GP; 97161-GP; 97165-GO; 97530-GO; 97530-GP; 97535-GO; G0378; G8978-GP-CJ; G8979-GP-CI; G8987-GO-CJ; G8988-GO-CI; J0171; J0456; J1650; J2405; J7512

== ENCOUNTER → 2017-03-29 | Outpatient (CLI) | payer OTHER, MEDICARE | LOC: BHFA 09:30 | PROVIDERS: ATTEND Internal Medicine Cardiovascular Disease | DX: I25.10 Atherosclerotic heart disease of native coronary artery without angina pectoris (principal); R06.02 Shortness of breath | CPT/HCPCS: 78452; 93017; A9500; J2785 ==

== ENCOUNTER 2017-06-01 10:12 | Observation (INO) | payer OTHER, MEDICARE ==
[2017-06-01] MEDS ORDERED: HYDROCODONE/APAP 5/325 TAB PO ONE (10:36)
[2017-06-01] MEDS ORDERED: CYCLOBENZAPRINE 10 MG TAB PO ONE (10:36)
--- NOTE | 2017-06-01 10:42 | EDPHY ---
H & P Time Seen by Provider: 06/01/17 10:23 HPI/ROS: HPI Lower back pain. 82-year-old male by private vehicle with his . This patient reports that he was working in the garden and bending over on Wednesday. He reports that he had some soreness in his right lower back after this. This persisted into Wednesday and then worsened significantly Wednesday evening and Wednesday night with radiation of pain and numbness to his right anterior thigh. He reports he was up all night with this last night. Denies any history of traumatic event. No fever. No history of malignancy. No abdominal pain. No bowel or bladder incontinence. ROS: Constitutional: No fever, no chills. No weakness. Eyes: No discharge. No changes in vision. ENT: No sore throat. No nasal congestion or rhinorrhea. Respiratory: No cough. No shortness of breath. Cardiac: No chest pain, no palpitations. Gastrointestinal: No abdominal pain, no vomiting, no diarrhea. Genitourinary: No hematuria. No dysuria or increased frequency with urination. Musculoskeletal: As above. No neck pain. No myalgias or arthralgias. Skin: No rashes. Neurological: No headache. No focal weakness. As above. Past medical history: Cardiac stents, pacemaker, blindness, GERD, kidney stones. 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 No alcohol. Nonsmoking. Physical Exam: General Appearance: Alert, sitting upright on gurney, looks uncomfortable but not in distress. This patient is responding to questions appropriately and in full sentences. This patient appears well-hydrated and well-nourished. Eyes: Pupils equal and round no pallor or injection. No lid edema, erythema or injection. Back exam: No midline thoracic, lumbar, sacral tenderness on palpation. He has vague tenderness on palpation paraspinal right side L3 through S1. No soft tissue edema, warmth, erythema, ecchymosis noted. Negative same side and cross side straight leg raise test. Motor function is intact in all myotomes of the bilateral lower extremities. He does have some sensory deficit to light touch in the L3 and L4 dermatomal distribution on the right side. The right lower extremity is neurovascularly intact. Gastrointestinal: Abdomen is soft and nontender, no masses, bowel sounds normal. No focal tenderness at McBurney's point. No Benton sign. Neurological: Motor sensory function is grossly intact except noted. Cranial nerves are normal. Ambulate under his own power. Baseline gait. Skin: Warm and dry, no rashes. Musculoskeletal: Neck is supple and nontender. Extremities are symmetrical. All joints range without pain or impingement. Psychiatric: No agitation. No depression. Database: EKG: Imaging: Procedures: Emergency department course: Vital signs reviewed. I discussed treatment options with this patient. He will initially be given 10 mg of Flexeril and [address] tablets for his pain. A Lidoderm patch will be applied as well. He has contraindications to NSAIDs. He states the gabapentin does not work well for him as well. The patient is requesting an MRI of his LS spine. He has travel in his near future and would like more clarity on the etiology of his pain. Given the L3/ L4 sensory deficit this is certainly reasonable. We will see if we can obtain an MRI of his LS spine here. 11:00 a.m., unable to obtain an MRI here secondary to insurance reasons. Patient will be sent to the [facility] Emergency Department for a noncontrast MRI of the LS spine. I spoke with physician field technical assistant Trent Munroe who is currently working at the [facility] Emergency Department. He is aware the patient is coming and will facilitate his imaging on arrival. The patient is in agreement with this plan. I have prescribed him both Flexeril and some [place]. His will take him over to the [facility] emergency department shortly. He was discharged from our emergency department in good condition. Differential Diagnosis: The differential diagnosis on this patient includes but is not limited to L2/L3 , L3/L4 disc herniation with associated sensory radiculopathy. Spinal cord compression syndrome, acute spinal fracture/subluxation/dislocation, epidural hematoma, AAA, malignancy unlikely. This represents a partial list of diagnoses considered. These considerations are based on history, physical exam , past history, reassessment and diagnostic testing. Smoking Status: Never smoked Constitutional: Initial Vital Signs Temperature (C) 36.6 C 06/01/17 10:22 Heart Rate 71 06/01/17 10:22 Respiratory Rate 16 06/01/17 10:22 Blood Pressure 169/99 H 06/01/17 10:22 O2 Sat (%) 95 06/01/17 10:22 O2 Delivery Mode Room Air Allergies/Adverse Reactions: No Known Allergies Allergy (Verified 06/01/17 10:22) Home Medications: Medication Instructions Recorded Acetaminophen [Tylenol 325mg (*)] 650 mg PO Q8HRS PRN 02/11/17 Aspirin [Aspirin 81mg (*)] 162 mg PO DAILY 02/11/17 Brimonidine 0.15% [Alphagan P 1 drops LEFTEYE Q8 02/11/17 0.15%] Dorzolamide/Timolol [Cosopt (*)] 1 drops LEFTEYE BID 02/11/17 Latanoprost 0.005% [Xalatan 0.005% 1 drops LEFTEYE HS 02/11/17 (*)] Pantoprazole Sodium [Protonix 40mg 40 mg PO HS 02/11/17 (*)] Simvastatin [Zocor] 20 mg PO HS 02/11/17 Albuterol [Proventil Inhaler HFA 1 - 2 puffs IH Q4H #1 mdi 02/17/17 (*)] Calcium Carbonate [Tums 500MG (*)] 500 mg PO TID PRN tab.chew 02/17/17 Ibuprofen [Motrin (*)] 400 mg PO Q4HRS PRN tab 02/17/17 Nitroglycerin [Nitrostat 0.4 mg 0.4 mg SL Q5M PRN btl 02/17/17 (*)] Oseltamivir Phosphate [Tamiflu 75 75 mg PO BIDMEAL #4 cap 02/17/17 mg (*)] guaiFENesin [Mucinex 600 MG (*)] 600 mg PO BID tab.er 02/17/17 Cyclobenzaprine [Flexeril 10 MG 10 mg PO TID #9 tab 06/01/17 (*)] Hydrocodone/APAP 5/325 [[place] 1 - 2 tab PO Q4-6PRN PRN #10 tab 06/01/17 5/325 (*)] Medical Decision Making - Data Points Medications Given: Discontinued Medications Hydrocodone Bitart/Acetaminophen ([place] 5/325) 2 tab PO EDNOW ONE Stop: 06/01/17 10:37 Last Admin: 06/01/17 10:45 Dose: 1 tab Cyclobenzaprine HCl (Flexeril) 10 mg PO EDNOW ONE Stop: 06/01/17 10:37 Last Admin: 06/01/17 10:45 Dose: 10 mg Miscellaneous Medication (Icy Hot Lidocaine/Menthol 4%/1% Patch) 1 patch TD EDNOW ONE Stop: 06/01/17 10:51 Last Admin: 06/01/17 11:03 Dose: 1 patch Departure - Departure Disposition: [facility] ER Clinical Impression: Lower back pain, Sciatica Condition: Good Instructions: Sciatica (ED) Additional Instructions: Read and follow provided instructions. Go directly to the [facility] Emergency Department as discussed. I spoke with emergency physician field technical assistant Trent Munroe. He is aware your coming and will get your MRI ordered on your arrival. Take medication as prescribed only. Referrals: Chris Moctezuma MD [Primary Care Provider] - As per Instructions Prescriptions: Cyclobenzaprine [Flexeril 10 MG (*)] 10 mg PO TID #9 tab Hydrocodone/APAP 5/325 [[place] 5/325 (*)] 1 - 2 tab PO Q4-6PRN PRN #10 tab PRN Reason: Pain, Moderate
[2017-06-01] MEDS ORDERED: LIDOCAINE 4%/MENTHOL 1% PATCH TD ONE (10:50)
--- NOTE | 2017-06-01 12:12 | EDPHY ---
General Time Seen by Provider: 06/01/17 10:23 Narrative: CHIEF COMPLAINT: Low back pain HISTORY OF PRESENT ILLNESS: Patient presents with spouse with complaints of low back pain this started on Wednesday after bending forward. He was seen earlier today at the [facility] by Dr. Ulloa. He was treated with oral medications and sent to our facility to obtain an MRI. There was no evidence of acute cord compression or cauda equina per Dr. Ulloa. Patient denies any anesthesia, incontinence of bowel or bladder retention of bowel or bladder. He is here for further delineation of his pain as he is planning to travel over the next few weeks starting tomorrow. REVIEW OF SYSTEMS: Ten systems reviewed and are negative unless otherwise noted in the HPI PAST MEDICAL HISTORY: Coronary artery disease status post stents, pacemaker, blindness, GERD, nephrolithiasis PAST SURGICAL HISTORY: Reviewed with patient. 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 Frail Cardiovascular: Symmetric DP and PT pulses. Back: Lidocaine patch present. Kyphotic. No step-off or deformity. Tenderness to palpation of the lumbar spine and paraspinous musculature. Neurological: A&O, sensory symmetric, strength symmetric in the lower extremities. Patellar reflexes symmetric. Skin: Warm and dry, no rash no petechiae or purpura DIFFERENTIAL DIAGNOSES: Including but not limited to lumbar radiculopathy, disc bulge, disc herniation, sprain, strain, epidural hematoma, discitis, fracture MDM: 12:00 p.m. Acute low back pain with Right sided radiculopathy. Patient is neuro intact. No evidence of acute cord compression or cauda equina. He informs me that symptoms are starting to improve after the medications provided prior to arrival , which include Flexeril and [place] as well as topical lidocaine. MRI has been ordered. He does have a pacemaker and we are currently attempting to verify this is MRI compliant. patient's spouse feel that he has had a previous MRI with a pacemaker in place 1:20 p.m. MR facilities operations technician is currently evaluating the patient's pacemaker for compatible bili. 2:05 p.m. Notified by pathological technician that the patient's pacemaker is not compatible with MRI. I re-evaluated the patient is complaining of severe pain. He is requesting IV pain medication. I have ordered this and patient will need to be admitted for pain control and further imaging. 2:15 p.m. Case discussed with hospitalist Dr. Jones. He will not the patient is service for pain control. He requests neurosurgery consultation. During my discussion with him I have found that the patient has not yet had a plain film performed, this will be obtained prior to consultation. 2:40 p.m. Notified by RN. Patient is now complaining of chest pain. This is described as a strong chest pain he is requesting nitroglycerin. He does have a history of coronary artery disease. I have ordered EKG, aspirin, nitroglycerin and chest x-ray. I have notified Dr. Jones as well. 2:48 p.m. I have re-evaluated the patient. His chest pain is resolved. I have also reviewed his EKG with Dr. Dietrich. Patient rhythm with no acute ischemia and no changes from February 11, 2017. 2:50 p.m. Case discussed with the neurosurgeon Dr. Boo. He will provide consultation. He requests CT scan of the lumbar spine. 3:30 p.m. I reviewed the plain film lumbar spine. There are chronic changes with no obvious acute finding as read by me. At this point I do feel he is stable for transport to his room. He is pending a CT scan lumbar spine and neurosurgery consultation, but he remains neuro intact with no evidence of acute cord compression. 4:00 p.m. Notified by radiologist Dr. Leon. CT scan reveals chronic changes but no obvious acute findings. EKG interpretation: Dr. Dietrich SUPERVISION: Patient was independently examined, but I discussed the case with my secondary supervising physicians Dr. Ulloa and Dr. Dietrich ED Precautions: Worsening pain. Erythema, edema, cyanosis, pallor, paresthesia or anesthesia. - Diagnostics Imaging Results: Imaging Impressions Lumbar Spine X-Ray 06/01/17 14:17 Impression: 1. New degenerative disk disease at L5-S1. 2. New left upper quadrant calcification, possibly representing a nephrolith. 3. Chronic scoliosis and stable old T12 and L4 compression abnormalities. 4. Progressive atherosclerotic disease. - History Smoking Status: Never smoked - Objective Vital Signs: Initial Vital Signs Temperature (C) 97.9 F 06/01/17 10:22 Heart Rate 71 06/01/17 10:22 Respiratory Rate 16 06/01/17 10:22 Blood Pressure 169/99 H 06/01/17 10:22 O2 Sat (%) 95 06/01/17 10:22 O2 Delivery Mode Room Air Allergies/Adverse Reactions: No Known Allergies Allergy (Verified 06/01/17 10:22) Home Medications: Medication Instructions Recorded Acetaminophen [Tylenol 325mg (*)] 650 mg PO Q8HRS PRN 02/11/17 Aspirin [Aspirin 81mg (*)] 162 mg PO DAILY 02/11/17 Brimonidine 0.15% [Alphagan P 1 drops LEFTEYE Q8 02/11/17 0.15%] Dorzolamide/Timolol [Cosopt (*)] 1 drops LEFTEYE BID 02/11/17 Latanoprost 0.005% [Xalatan 0.005% 1 drops LEFTEYE HS 02/11/17 (*)] Pantoprazole Sodium [Protonix 40mg 40 mg PO HS 02/11/17 (*)] Simvastatin [Zocor] 20 mg PO HS 02/11/17 Albuterol [Proventil Inhaler HFA 1 - 2 puffs IH Q4H #1 mdi 02/17/17 (*)] Calcium Carbonate [Tums 500MG (*)] 500 mg PO TID PRN tab.chew 02/17/17 Ibuprofen [Motrin (*)] 400 mg PO Q4HRS PRN tab 02/17/17 Nitroglycerin [Nitrostat 0.4 mg 0.4 mg SL Q5M PRN btl 02/17/17 (*)] Oseltamivir Phosphate [Tamiflu 75 75 mg PO BIDMEAL #4 cap 02/17/17 mg (*)] guaiFENesin [Mucinex 600 MG (*)] 600 mg PO BID tab.er 02/17/17 Cyclobenzaprine [Flexeril 10 MG 10 mg PO TID #9 tab 06/01/17 (*)] Hydrocodone/APAP 5/325 [[place] 1 - 2 tab PO Q4-6PRN PRN #10 tab 06/01/17 5/325 (*)] Medications Given: Discontinued Medications Hydrocodone Bitart/Acetaminophen ([place] 5/325) 2 tab PO EDNOW ONE Stop: 06/01/17 10:37 Last Admin: 06/01/17 10:45 Dose: 1 tab Aspirin (Aspirin) 325 mg PO EDNOW ONE Stop: 06/01/17 14:44 Last Admin: 06/01/17 14:47 Dose: 325 mg Cyclobenzaprine HCl (Flexeril) 10 mg PO EDNOW ONE Stop: 06/01/17 10:37 Last Admin: 06/01/17 10:45 Dose: 10 mg Miscellaneous Medication (Icy Hot Lidocaine/Menthol 4%/1% Patch) 1 patch TD EDNOW ONE Stop: 06/01/17 10:51 Last Admin: 06/01/17 11:03 Dose: 1 patch Morphine Sulfate (Morphine) 4 mg IVP EDNOW ONE Stop: 06/01/17 14:14 Last Admin: 06/01/17 14:46 Dose: 4 mg Ondansetron HCl (Zofran) 4 mg IVP EDNOW ONE Stop: 06/01/17 14:14 Last Admin: 06/01/17 14:54 Dose: 4 mg Departure - Departure Disposition: [facility] Inpatient Acute Clinical Impression: Lower back pain Qualifiers: Chronicity: acute Back pain laterality: right Sciatica presence: with sciatica Sciatica laterality: sciatica of right side Qualified Code(s): M54.41 - Lumbago with sciatica, right side Sciatica Qualifiers: Laterality: right Qualified Code(s): M54.31 - Sciatica, right side Condition: Good
[2017-06-01] MEDS ORDERED: ONDANSETRON 4 MG/2 ML VIAL IVP ONE (14:13)
[2017-06-01] MEDS ORDERED: ASPIRIN 81 MG CHEWABLE TAB ONE (14:40)
[2017-06-01] MEDS ORDERED: NITROGLYCERIN 0.4 MG BTL SL ONE ×2 (14:40→14:43)
[2017-06-01] MEDS ORDERED: ASPIRIN 325 MG TAB PO ONE (14:43)
--- NOTE | 2017-06-01 14:45 | CPEKG ---
Heart Rate: 60 RR Interval: 1000 P-R Interval: 300 QRSD Interval: 136 QT Interval: 448 QTC Interval: 448 P [place]: -76 QRS [place]: -62 T Wave [place]: 101 EKG Severity - ABNORMAL ECG - EKG Impression: ATRIAL-VENTRICULAR DUAL-PACED COMPLEXES Electronically Signed By: Torin Dietrich 01-Jun-2017 14:47:37
[2017-06-01 14:50] LABS: PLATELET COUNT 159 10^3/uL (150-400)
--- NOTE | 2017-06-01 15:06 | PDGENHP ---
History and Physical - Chief Complaint acute back pain - History of Present Illness 82 yo male with h/o CAD and GERD presents to ED with acute low back pain. He was gardening over the weekend and the pain started Wednesday morning. No falls. The pain radiates into his anterior right thigh from his low back. He describes this as numbness. He denies foot drag or weakness. His notes he was screaming in pain overnight. No loss of bowel or bladder incontinence. In the ED, he was given muscle relaxer, opiates and lidoderm. He then developed chest pain suddenly. He received Aspirin and NTG and the pain resolved. His is concerned it was an anxiety attack. He is currently chest pain free. He notes a recent negative nuclear stress test as an outpatient. Denies SOB, cough, fever. He does endorse h/o GERD History Information - Allergies/Home Medication List Allergies/Adverse Reactions: No Known Allergies Allergy (Verified 06/01/17 10:22) Home Medications: Acetaminophen [Tylenol 325mg (*)] 650 mg PO Q8HRS PRN 02/11/17 [Last Taken 02/11 09:00] Aspirin [Aspirin 81mg (*)] 162 mg PO DAILY 02/11/17 [Last Taken 02/11/17] Brimonidine 0.15% [Alphagan P 0.15%] 1 drops LEFTEYE Q8 02/11/17 [Last Taken Unknown] Dorzolamide/Timolol [Cosopt (*)] 1 drops LEFTEYE BID 02/11/17 [Last Taken ] Latanoprost 0.005% [Xalatan 0.005% (*)] 1 drops LEFTEYE HS 02/11/17 [Last Taken 02/10/17] Pantoprazole Sodium [Protonix 40mg (*)] 40 mg PO HS 02/11/17 [Last Taken ] Simvastatin [Zocor] 20 mg PO HS 02/11/17 [Last Taken 02/10/17] I have personally reviewed and updated: family history, medical history, social history, surgical history - Past Medical History atrial fibrillation, coronary artery disease, GERD, glaucoma Additional medical history: H/O AL 08/2012. H/O Mobitz type 2, s/p pacemaker. H /O V tac, A fib - Surgical History Reports: appendectomy Additional surgical history: Pacemaker placement 2012 - Family History Positive for: cancer, CAD - Social History Smoking Status: Never smoked Alcohol Use: Other (drinks 2-4 glasses of wine daily) Drug Use: None Additional social history: Lives independently with . 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 Review of Systems Review of Systems: ROS: 10pt was reviewed & negative except for what was stated in HPI & below Physical Exam Physical Exam: Temp Pulse Resp BP Pulse Ox 36.4 C 64 18 136/87 H 95 06/01/17 14:51 06/01/17 14:51 06/01/17 14:51 06/01/17 14:51 06/01/17 14:51 Constitutional: no apparent distress Eyes: PERRL Ears, Nose, Mouth, Throat: moist mucous membranes Cardiovascular: regular rate and rhythym Respiratory: no respiratory distress, clear to auscultation Gastrointestinal: normoactive bowel sounds, soft, non-tender abdomen Skin: warm Musculoskeletal: full muscle strength, other (+paraspinal muscles taut R>L) Neurologic: AAOx3, other (straight leg raising neg. 2+ DTR's b/l patellar and achilles. ) Psychiatric: interacting appropriately Lab Data & Imaging Review 06/01/17 14:35 06/01/17 14:35 WBC 7.30 10^3/uL (3.80-9.50) 06/01/17 14:35 RBC 4.76 10^6/uL (4.40-6.38) 06/01/17 14:35 Hgb 17.2 g/dL (13.7-17.5) 06/01/17 14:35 Hct 48.5 % (40.0-51.0) 06/01/17 14:35 MCV 101.9 fL (81.5-99.8) H 06/01/17 14:35 MCH 36.1 pg (27.9-34.1) H 06/01/17 14:35 MCHC 35.5 g/dL (32.4-36.7) 06/01/17 14:35 RDW 12.2 % (11.5-15.2) 06/01/17 14:35 Plt Count 159 10^3/uL (150-400) 06/01/17 14:35 MPV 9.6 fL (8.7-11.7) 06/01/17 14:35 Neut % (Auto) 60.6 % (39.3-74.2) 06/01/17 14:35 Lymph % (Auto) 30.5 % (15.0-45.0) 06/01/17 14:35 [place] % (Auto) 7.1 % (4.5-13.0) 06/01/17 14:35 Eos % (Auto) 1.0 % (0.6-7.6) 06/01/17 14:35 Baso % (Auto) 0.5 % (0.3-1.7) 06/01/17 14:35 Nucleat RBC Rel Count 0.0 % (0.0-0.2) 06/01/17 14:35 Absolute Neuts (auto) 4.42 10^3/uL (1.70-6.50) 06/01/17 14:35 Absolute Lymphs (auto) 2.23 10^3/uL (1.00-3.00) 06/01/17 14:35 Absolute Monos (auto) 0.52 10^3/uL (0.30-0.80) 06/01/17 14:35 Absolute Eos (auto) 0.07 10^3/uL (0.03-0.40) 06/01/17 14:35 Absolute Basos (auto) 0.04 10^3/uL (0.02-0.10) 06/01/17 14:35 Absolute Nucleated RBC 0.00 10^3/uL (0-0.01) 06/01/17 14:35 Immature Gran % 0.3 % (0.0-1.1) 06/01/17 14:35 Immature Gran # 0.02 10^3/uL (0.00-0.10) 06/01/17 14:35 Visualized and Interpreted EKG results: Yes EKG Interpretation: Positive for: other (AV paced complexes) Assessment & Plan Assessment: Acute low back pain with lumbar radiculopathy - suspect HNP. No loss of bowel or bladder control to suggest cauda equina. Abnormal plain film with possible L4 compression deformity. Unable to get MRI with pacemaker, CT pending. -admit for pain control: low dose gabapentin (pt initially declined), IV toradol, lidoderm patch, flexeril, prn opiates -await CT findings (?compression fracture vs HNP) -neurosurgery consulted, await recs -may benefit from steroids if this is HNP, but if solely compression fracture , may require kyphoplasty -PT/OT evals tomorrow Chest pain with h/o CAD - currently CP free. EKG non-ischemic. Trop neg. He just had a neg nuc stress test recently at [facility]. -trend trop -prn ntg -cont ASA, statin. Pt declines BB due to side effects H/O cardiac arrhythmia - has had Mobitz type 2, s/p pacer. Also notes brief episodes of VT and A fib on pacer interrogations in past. Anticoagulation has not been recommended and he is maintained on ASA 162 mg daily. Followed by Dr. Ly at [facility] -monitor on telemetry GERD - cont PPI once med rec completed Etoh use - drinks several drinks per day, no h/o w/d. Monitor closely. Defer giving etoh here with IV opiate use. Full code DVT PPLX - Lovenox Dispo - obs
[2017-06-01] MEDS ORDERED: LIDOCAINE 2% VISCOUS 15 ML UDCUP PO PRN (15:08)
[2017-06-01] MEDS ORDERED: HYOSCYAMINE SULFATE 0.125 MG TAB PO PRN (15:08)
[2017-06-01] MEDS ORDERED: MAG HYDROX/AL HYDROX/SIMETH 30 ML UDCUP PO PRN (15:08)
[2017-06-01] MEDS ORDERED: HYDROCODONE/APAP 5/325 TAB PO PRN (15:22)
[2017-06-01] MEDS ORDERED: ONDANSETRON DISINTEGRATING 4 MG TAB PO PRN (15:25)
[2017-06-01] MEDS ORDERED: ONDANSETRON 4 MG/2 ML VIAL IVP PRN (15:25)
[2017-06-01] MEDS ORDERED: CYCLOBENZAPRINE 10 MG TAB PO PRN (15:34)
[2017-06-01] MEDS ORDERED: methylPREDNISolone SOD SUCC 125 MG/2 ML VIAL IVP ONE (17:01)
[2017-06-01] MEDS: LIDOCAINE 4%/MENTHOL 1% PATCH TD SCH (17:42)
[2017-06-01] MEDS: KETOROLAC 15 MG/1 ML SDV IVP SCH (17:48)
--- NOTE | 2017-06-01 17:52 | NEUSURGPN ---
Assessment/Plan: Assessment: 82 yr old with low back pain and right quad burning Plan: Please see full dictated consult when available for details -CT lumbar spine suggestive of right L4-5 foraminal stenosis, stable compression fractures. -Will give 125mg Solu-Medrol IVx1 and start Medrol pack in am -Hold ASA in event CT myelogram is needed and/or CINDY (unable to get MRI r/t pacemaker) -Patient has full strength in BLE, hopeful his symptoms can resolve with conservative treatment at this time -Patient was seen by myself and Dr Yadav at 1645, thank you for this consult. We will continue to follow. Please call neurosurgery with any questions/concerns Subjective: Sitting in bed eating Objective: AxO x3 5/5 BLE Sensation intact to light touch BLE Neuro Check Frequency: per routine Urinary Catheter in Place: No - Physician Discussed Patient with : Leif Patient Seen by : Leif Neurosurgery Physical Exam - Vitals, I&O, Labs I and O 05/31/17 06/01/17 06/02/17 05:59 05:59 05:59 Weight 81.647 kg Vital Signs Temp Pulse Resp BP Pulse Ox 36.5 C 60 17 138/76 H 91 L 06/01/17 16:00 06/01/17 16:00 06/01/17 16:00 06/01/17 16:00 06/01/17 16:00 Laboratory Results 06/01/17 14:35 06/01/17 14:35 ICD10 Worksheet Patient Problems: Problems Problem Status Onset Lower back pain Acute Sciatica Acute Influenza A Acute
[2017-06-01] MEDS: GABAPENTIN 100 MG CAP PO SCH ×2 (17:53→20:35)
--- NOTE | 2017-06-01 18:41 | GCON ---
[f rep st] CONSULTATION INPATIENT NEUROSURGERY CONSULTATION CHIEF COMPLAINT: Low back pain, right leg pain. 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 The patient was working in the garden on Wednesday, bending over significantly and noticed some soreness in the right lower back. His symptoms persisted on Wednesday and eventually progressed to the point of bringing him to the emergency department. The patient denies any trauma or recent falls. The patient denies any weakness in his bilateral lower extremities. Denies any incontinence of his bowel or bladder. REVIEW OF SYSTEMS: A 10-point review of systems was performed and negative aside from what was mentioned in the HPI. PAST MEDICAL HISTORY: 1. Blindness. 2. GERD. 3. Kidney stones. SURGICAL HISTORY: 1. Cardiac stents. 2. Pacemaker. MEDICATIONS: 1. Tylenol 325 mg p.o. q.8 hours p.r.n. 2. Aspirin 162 mg p.o. daily. 3. Brimonidine 0.15%, 1 drop left eye q.8 hours. 4. Dorzolamide/timolol 1 drop left eye b.i.d. 5. Latanoprost 0.005% 1 drop left eye q.h.s. 6. Protonix 40 mg q.h.s. 7. Zocor 20 mg q.h.s. 8. Albuterol 1-2 puffs q.4 hours. 9. Ibuprofen 400 mg q.4 hours p.r.n. 10. Nitroglycerin 0.4 mg sublingual p.r.n. 11. Tamiflu 75 mg p.o. b.i.d. 12. Mucinex 600 mg p.o. b.i.d. 13. Flexeril 10 mg p.o. t.i.d. 14. Premium 5/325, one to 2 tabs p.o. q.4-6 hours p.r.n. ALLERGIES: No known drug allergies. FAMILY HISTORY: No pertinent family history to the current situation. 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 The patient does not drink alcohol. Patient does not smoke cigarettes. DIAGNOSTICS: Lab results: White blood cell count 7.3, hematocrit 48.5, hemoglobin 17.2, platelet count 159. Sodium 145, potassium 4.4, BUN 14, creatinine 0.8, glucose is 80. Troponin was 0.017. X-ray of the lumbar spine demonstrates a new degenerative disk disease at L5-S1 , stable chronic lumbar levoscoliosis. There is an old, mild left T12 compression deformity with left lateral attempted bridging osteophytes. There are chronic right lateral osteophytes between L1 and L3. Moderate stable L4 compression deformity. No new compressions are noted. CT lumbar spine without contrast demonstrates stable moderate compression, superior central endplate of L4 as well as stable presumed Schmorl's node posterior superior endplate of T12 toward the left. Disk space narrowing along mild disk bulges and associated neural foraminal stenosis appear relatively stable when compared to prior MRI study, which was compared from July of [address]. [address]. Yadav did feel the CT was suggestive of some right L4-5 foraminal stenosis. PHYSICAL EXAM: VITAL SIGNS: Blood pressure is 138/76, heart rate is 60, respiratory rate is 17, oxygen saturation 91% on 2 L nasal cannula, temperature is 36.5 degrees Celsius. HEENT: Head is normocephalic and atraumatic. RESPIRATORY: Deferred. CARDIAC: Deferred. ABDOMEN, GENITOURINARY, RECTAL: Deferred. NEUROLOGIC: The patient is awake and alert, oriented to name, place , time, location, date, and situation. His memory is intact to immediate past and current events. Speech: No aphasia or dysphonia. Cranial nerves 2-12 are grossly intact aside from ocular vision. The patient has blindness. The patient has 5/5 strength in all muscle groups in the bilateral lower extremities to include iliopsoas, quadriceps, hamstrings, plantar flexion, dorsiflexion, EHL testing. Sensation is grossly intact to light touch throughout all dermatomal distributions of bilateral lower extremities. Negative straight-leg raise. Negative SHANNON test. Reflexes, knee jerk and ankle jerk are 2+/4. Toes are downgoing bilaterally. Babinski is negative. 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 The patient underwent x-ray and CT of the lumbar spine which was reviewed by myself and Dr. Yadav. Dr. Yadav feels the CT of the lumbar spine is suggestive of a right-sided L4-5 foraminal stenosis. The patient takes aspirin, which is currently on hold. We will give the patient Solu-Medrol 125 mg IV push x1 and start him on a Medrol Dosepak in the morning. It is our hope that he will continue to improve with conservative management. If conservative management fails, we can consider getting a CT myelogram and/ or epidural steroid injection. We will need to continue to hold aspirin in the event he needs a myelogram or trial of the epidural steroid in the near future. The patient was seen and examined by myself and Dr. Yadav in the patient's room 359, at 1645 hours today. Please call Neurosurgery with any questions or concerns. /[id number]/MODL MTDD
[2017-06-01] MEDS ORDERED: NITROGLYCERIN 0.4 MG BTL SL PRN (20:33)
[2017-06-01] MEDS ORDERED: CALCIUM CARBONATE 500 MG CHEWABLE TAB PO PRN (20:33)
[2017-06-01] MEDS ORDERED: PATCH REMOVAL 1 EA PATCH TD SCH ×2 (21:00)
[2017-06-01] MEDS ORDERED: Simvastatin [Zocor] 20 MG PO SCH (21:00)
[2017-06-01] MEDS ORDERED: PANTOPRAZOLE SODIUM 40 MG TAB PO SCH (21:00)
[2017-06-01] MEDS ORDERED: CYCLOBENZAPRINE 10 MG TAB PO SCH (21:00)
[2017-06-01] MEDS ORDERED: BRIMONIDINE 0.15% 5 ML OPHT.BTL LEFTEYE SCH (22:00)
[2017-06-01] MEDS: BRIMONIDINE 0.2% 5 ML OPHT.BTL LEFTEYE SCH (22:13)
[2017-06-01] MEDS: DORZOLAMIDE/TIMOLOL 10 ML OPHT.BTL LEFTEYE SCH (22:13)
[2017-06-02] MEDS: KETOROLAC 15 MG/1 ML SDV IVP SCH ×3 (00:30→13:08)
[2017-06-02] MEDS: BRIMONIDINE 0.2% 5 ML OPHT.BTL LEFTEYE SCH ×2 (05:16→13:12)
--- NOTE | 2017-06-02 07:26 | NEUSURGPN ---
Assessment/Plan: Assessment: 82 yr old with low back pain and right quad burning Plan: -pt given steroids and is much better -will continue with medrol dose pack and gabapentin -will hold off on any further diagnostic tests -pt will follow up with us in 2-3 weeks for a recheck -prior CT lumbar spine suggestive of right L4-5 foraminal stenosis, stable compression fractures -Patient has full strength in BLE, hopeful his symptoms will continue to respond to conservative treatments at this time -Patient was seen by myself and Dr Yadav at 0700 -will continue to follow -please call neurosurgery with any questions/concerns Subjective: Awake and alert. Feeling much better. No [place]/neck/chest/abd or gu complaints. No f/c/n/v/d. Objective: AAO x 3, PERRLA/EOMI no droop CN 2-12 grossly intact +lt touch 5/5 BUE/BLE = Neuro Check Frequency: per routine Urinary Catheter in Place: No - Physician Discussed Patient with : Leif Patient Seen by : Leif Neurosurgery Physical Exam - Vitals, I&O, Labs I and O 06/01/17 06/02/17 06/03/17 05:59 05:59 05:59 Intake Total 750 Balance 750 Weight 81.647 kg Intake: Oral (ml) 750 Other: Intake Quantity Yes Sufficient Number of Voids Toilet 1 Vital Signs Temp Pulse Resp BP Pulse Ox 36.4 C 60 16 117/60 90 L 06/02/17 04:00 06/02/17 04:00 06/02/17 04:00 06/02/17 04:00 06/02/17 04:00 Laboratory Results 06/01/17 14:35 06/01/17 14:35 ICD10 Worksheet Patient Problems: Problems Problem Status Onset Lower back pain Acute Sciatica Acute Influenza A Acute
[2017-06-02 07:29] VITALS: BP 112/60
[2017-06-02] MEDS ORDERED: methylPREDNISolone 4 MG TAB PO SCH ×2 (07:30→13:00)
[2017-06-02] MEDS: GABAPENTIN 100 MG CAP PO SCH (08:47)
[2017-06-02] MEDS: LIDOCAINE 4%/MENTHOL 1% PATCH TD SCH (08:49)
[2017-06-02] MEDS: DORZOLAMIDE/TIMOLOL 10 ML OPHT.BTL LEFTEYE SCH (08:49)
[2017-06-02] MEDS ORDERED: ENOXAPARIN 40 MG/0.4 ML SYR SC SCH (09:00)
[2017-06-02] MEDS ORDERED: ASPIRIN 81 MG CHEWABLE TAB PO SCH (09:00)
[2017-06-02] MEDS ORDERED: ASPIRIN EC 81 MG TAB PO SCH (10:15)
--- NOTE | 2017-06-02 12:01 | ASMTCMCOM ---
CM Note CM Note Notes: Pt in for lumbar radiculopathy, given steroids. WIll follow up w nsg outpatient. PT/OT clear pt for home with family support. No CM d/c needs identified. Date Signed: 06/02/2017 12:00 PM Electronically Signed By:INEZ Newton
--- NOTE | 2017-06-02 16:36 | GDS ---
[f rep st] DISCHARGE SUMMARY DISCHARGE DIAGNOSES: 1. Acute low back pain. 2. Lumbar radiculopathy, secondary to L4-5 foraminal stenosis. 3. Chronic stable T12 and L4 compression fractures. 4. Degenerative disk disease. 5. Coronary artery disease. 6. History of cardiac arrhythmia, status post pacemaker. 7. Gastroesophageal reflux disease. CONSULTANTS: Alayna Beck NP, neurosurgery. HISTORY: For details please see the history and physical dated June 01, 2017. 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 He had acute radicular symptoms with difficulty with ambulation and was admitted to the hospital for observation. HOSPITAL COURSE: Patient was admitted to the med/surg unit. Lumbar spine x-ray revealed degenerativ e disk disease and chronic stable compression fractures. He was unable to undergo MRI due to his pac emaker, and a CT lumbar spine was performed. This again revealed a stable compression deformity of L 4 as well as T12. In addition, there is disk space narrowing along with mild disk bulges and associa mariam neuroforaminal stenoses consistent with his symptom pattern. He received anti-inflammatories, IV Solu-Medrol, and IV morphine for pain control along with muscle relaxers. Neurosurgery consult was obtained. He was started on a Medrol Dosepak. His symptoms are dramatically improved the following morning, and he was discharged by the neurosurgery service with plans for close outpatient followup. DISPOSITION: Patient is discharged home in stable condition. FOLLOWUP: 1. Dr. Sagar Yadav, neurosurgery. 2. Dr. Trevon Moctezuma, primary care. DISCHARGE MEDICATIONS: Please see [facility] for completed outpatient medication list. New medication s on discharge include Flexeril 10 mg p.o. t.i.d. (#9/no refills), Timblin 1-2 tablets p.o. q.4-6 hours p.r.n. (#10/no refills, Flexeril 10 mg p.o. b.i.d. p.r.n. (#40/no refills), and gabapentin 100 mg p .o. b.i.d.(#60/no refills); this can be uptitrated in the outpatient setting as tolerated. He will c ontinue all other outpatient medications as previously prescribed. /[id number]/MODL
[2017-06-03] MEDS ORDERED: methylPREDNISolone 4 MG TAB PO SCH ×2 (07:30→21:00)
[2017-06-04] MEDS ORDERED: methylPREDNISolone 4 MG TAB PO SCH (07:30)
[2017-06-05] MEDS ORDERED: methylPREDNISolone 4 MG TAB PO SCH (07:30)
[2017-06-06] MEDS ORDERED: methylPREDNISolone 4 MG TAB PO SCH (07:30)
[2017-06-07] MEDS ORDERED: methylPREDNISolone 4 MG TAB PO SCH (07:30)
== END 2017-06-02 13:38 | disposition home or self-care (01) ==
LOC: CED 10:12 → F3N 15:51
PROVIDERS: ADMIT Internal Medicine; ATTEND Internal Medicine
DX: M54.16 Radiculopathy, lumbar region (principal); M48.54XA Collapsed vertebra, not elsewhere classified, thoracic region, initial encounter for fracture; M51.36 Other intervertebral disc degeneration, lumbar region; I25.10 Atherosclerotic heart disease of native coronary artery without angina pectoris; K21.9 Gastro-esophageal reflux disease without esophagitis; H54.8 Legal blindness, as defined in USA; Z95.0 Presence of cardiac pacemaker
CPT/HCPCS: 71045; 72100; 72131; 93005; 96374; 96375; 97161; 97165; 97535; 99285; G0378; G8978; G8979; G8987; G8988; J1650; J1885; J2270; J2405; J2930

== ENCOUNTER 2017-06-06 12:37 | Inpatient (IN) | payer OTHER, MEDICARE ==
[2017-06-06] MEDS ORDERED: methylPREDNISolone SOD SUCC 125 MG/2 ML VIAL IVP ONE (13:03)
--- NOTE | 2017-06-06 13:07 | EDPHY ---
H & P Stated Complaint: 1 week continuing prob with r sided sciatica and r thigh pain/ seen previous Time Seen by Provider: 06/06/17 13:04 HPI/ROS: HPI: This is an 82-year-old male who presents with Chief Complaint: 1 week continuing problems with right sided sciatica and r thigh pain/seen previous Location: Right-sided leg/anterior thigh Quality: pain/numbness Duration: 1 week Signs and Symptoms: No bleeding, no radiation, no numbness, no weakness, no tingling, no incontinence, no decreased range of motion, no swelling, no pain, no fever Timing: Worsening Severity: 10 out 10 Context: Patient presents for the 2nd time to the emergency room with complaints of lower back pain with right radiculopathy into the right knee accompanied by right anterior thigh numbness. Patient reports that he was not able to get out of bed this morning despite being on a Medrol Dosepak, Vicodin, Neurontin and Flexeril use. Patient was seen in the emergency room on [address] lumbar spine ordered as he is unable to obtain an MRI secondary to his pacemaker. CT lumbar spine at that time showed stable moderate central compression superior endplate of L4 and compression posterior superior endplate toward the left possibly from Schmorl's node T12. He was admitted to the hospital given IV Solu-Medrol and IV opiates with adequate pain control enough to be discharged home the next day. Patient is currently taking Medrol Dosepak , Vicodin, gabapentin and Flexeril without any relief and in fact he reports that his right sided radiculopathy and sciatica is worsening. He called Dr. Yadav office today and spoke with ALIZA Crystal who directed him towards the emergency room. I spoke with the PA on the phone who reports that we could obtain a CT myelogram tomorrow. Patient denies any urinary or bowel incontinence. Patient reportedly stopped aspirin 2 days ago. Modifying Factors: See above Comment: ROS: see HPI Constitutional: No fever, no chills, no weight loss Eyes: No blurred vision Respiratory: No shortness of breath, no cough Cardiovascular: No chest pain Gastrointestinal: No nausea, no vomiting no diarrhea Genitourinary: No dysuria Extremities: No myalgias Neurologic: No weakness, no numbness Skin: No rashes Hematologic: No bruising, no bleeding MEDICAL/SURGICAL/SOCIAL HISTORY: Medical/surgical history: cardiac stents/pacemaker/glaucoma/blindness/GERD, kidney stones, flu, bronchopneumonia, compression fractures L & T, 11 rib fractures, appendectomy, TORN MENISCUS IN KNEES CONSTITUTIONAL: Elderly white male, nontoxic in appearance, moderate distress due to pain, awake and alert HEENT: Atraumatic and normocephalic. NECK: supple, no midline tenderness, flexion 45 degrees, extension 45 degrees, right and left lateral flexion 45 degrees. No meningismus. Cardiovascular: Normal S1/S2, regular rate, regular rhythm, without murmur rub or gallop. PULMONARY/CHEST: Symmetrical and nontender. no crepitus. Clear to auscultation bilaterally. Good air movement. No accessory muscle usage. ABDOMEN: Soft, nondistended, nontender, no ecchymosis. PELVIC: no pain with rocking; bilateral hips flexion 125 degrees, extension 30 degrees, with no pain internal rotation and no pain external rotation. BACK: Moderate mid lumbar midline tenderness, no paraspinous spasm, deep tendon reflexes 2/2, moderate pain with right straight leg raise, No foot drop. Achilles reflexes are equal bilaterally. EXTREMITIES: 2/2 pulses, strength 5/5, DIP/PIP/MCP flexion/extension intact with good light touch sensation. no deformities, no clubbing, no cyanosis or edema. NEUROLOGICAL: no focal neuro deficits. GCS 15. Light touch sensation intact. SKIN: Warm and dry, no erythema. no rash. Good capillary refill. Source: Patient, Family, RN/MD, Old records Exam Limitations: No limitations - Personal History Current Tetanus/Diphtheria Vaccine: Yes - Medical/Surgical History Hx Asthma: No Hx Chronic Respiratory Disease: No Hx Diabetes: No Hx Cardiac Disease: Yes Hx Renal Disease: No Hx Cirrhosis: No Hx Alcoholism: No Hx HIV/AIDS: No Hx Splenectomy or Spleen Trauma: No Other PMH: cardiac stents/pacemaker/glaucoma/blindness/GERD, kidney stones, flu , broncopneumonia, compression fractures L & T, 11 rib fractures, APPY, TORN MENISCUS IN KNEES - Social History Smoking Status: Never smoked Constitutional: Initial Vital Signs Temperature (C) 37 C 06/06/17 12:45 Heart Rate 72 06/06/17 12:45 Respiratory Rate 18 06/06/17 12:45 Blood Pressure 170/109 H 06/06/17 12:45 O2 Sat (%) 94 06/06/17 12:45 O2 Delivery Mode Room Air Allergies/Adverse Reactions: No Known Allergies Allergy (Verified 06/06/17 12:44) Home Medications: Medication Instructions Recorded Acetaminophen [Tylenol 325mg (*)] 650 mg PO Q8HRS PRN 02/11/17 Aspirin [Aspirin 81mg (*)] 162 mg PO DAILY 02/11/17 Dorzolamide/Timolol [Cosopt (*)] 1 drops LEFTEYE BID 02/11/17 Pantoprazole Sodium [Protonix 40mg 40 mg PO HS 02/11/17 (*)] Simvastatin [Zocor] 20 mg PO HS 02/11/17 Calcium Carbonate [Tums 500MG (*)] 500 mg PO TID PRN tab.chew 02/17/17 Nitroglycerin [Nitrostat 0.4 mg 0.4 mg SL Q5M PRN btl 02/17/17 (*)] Brimonidine 0.2% [Alphagan 0.2%] 1 drops LEFTEYE Q8 06/01/17 Cyclobenzaprine [Flexeril 10 MG 10 mg PO TID #9 tab 06/01/17 (*)] Hydrocodone/APAP 5/325 [[place] 1 - 2 tab PO Q4-6PRN PRN #10 tab 06/01/17 5/325 (*)] Latanoprostene Bunod [Vyzulta] 1 drop LEFTEYE HS 06/01/17 Cyclobenzaprine [Flexeril 10 MG 10 mg PO BID PRN #40 tab 06/02/17 (*)] Gabapentin [Neurontin 100 MG (*)] 100 mg PO BID #60 cap 06/02/17 Hydrocodone/APAP 5/325 [[place] 1 tab PO Q4HRS PRN #30 tab 06/02/17 5/325 (*)] Medrol Dose Nasim 06/06/17 Medical Decision Making ED Course/Re-evaluation: No signs to suggest cauda equina syndrome. Given IV morphine 4 mg and IV Solu-Medrol 125 mg per patient request and after consultation with neurosurgery PA. Laboratory studies ordered including coags. ED decision to consult for admission. Spoke with Mckenna who kindly agrees to admit patient to Dr. Vera with Neurosurgery consult. Plan is for CT myelogram tomorrow. 1335: Labs reviewed. Minimal leukocytosis without left shift noted. Macrocytosis without anemia. No signs of anemia/RONN/elevated LFTs/electrolyte imbalance/coagulopathy. This patient was seen under the supervision of my secondary supervising physician. I evaluated care for this patient independently. Discussed this patient with Dr. Estrada who did not see the patient. Differential Diagnosis: Back pain including but not limited to muscular pain, herniated disc, spine fracture, intra-abdominal causes and urinary tract infection. - Data Points Laboratory Results: Laboratory Results 06/06/17 13:05 06/06/17 13:05 06/06/17 06/06/17 06/06/17 13:05 13:05 13:05 WBC 10.05 10^3/uL H 10^3/uL (3.80-9.50) RBC 5.05 10^6/uL 10^6/uL (4.40-6.38) Hgb 18.0 g/dL H g/dL (13.7-17.5) Hct 50.6 % % (40.0-51.0) MCV 100.2 fL H fL (81.5-99.8) MCH 35.6 pg H pg (27.9-34.1) MCHC 35.6 g/dL g/dL (32.4-36.7) RDW 11.9 % % (11.5-15.2) Plt Count 203 10^3/uL 10^3/uL (150-400) MPV 9.5 fL fL (8.7-11.7) Neut % (Auto) 53.7 % % (39.3-74.2) Lymph % (Auto) 35.9 % % (15.0-45.0) [place] % (Auto) 8.4 % % (4.5-13.0) Eos % (Auto) 0.9 % % (0.6-7.6) Baso % (Auto) 0.4 % % (0.3-1.7) Nucleat RBC Rel Count 0.0 % % (0.0-0.2) Absolute Neuts (auto) 5.40 10^3/uL 10^3/uL (1.70-6.50) Absolute Lymphs (auto) 3.61 10^3/uL H 10^3/uL (1.00-3.00) Absolute Monos (auto) 0.84 10^3/uL H 10^3/uL (0.30-0.80) Absolute Eos (auto) 0.09 10^3/uL 10^3/uL (0.03-0.40) Absolute Basos (auto) 0.04 10^3/uL 10^3/uL (0.02-0.10) Absolute Nucleated RBC 0.00 10^3/uL 10^3/uL (0-0.01) Immature Gran % 0.7 % % (0.0-1.1) Immature Gran # 0.07 10^3/uL 10^3/uL (0.00-0.10) PT 13.4 SEC SEC (12.0-15.0) INR 1.00 (0.83-1.16) APTT 24.0 SEC SEC (23.0-38.0) Sodium 141 mEq/L mEq/L (135-145) Potassium 4.2 mEq/L mEq/L (3.5-5.2) Chloride 104 mEq/L mEq/L (97-110) Carbon Dioxide 24 mEq/l mEq/l (22-31) Anion Gap 13 mEq/L mEq/L (8-16) BUN 18 mg/dL mg/dL (7-23) Creatinine 0.8 mg/dL mg/dL (0.7-1.3) Estimated GFR > 60 Glucose 96 mg/dL mg/dL (70-100) Calcium 10.0 mg/dL mg/dL (8.5-10.4) Medications Given: Discontinued Medications Methylprednisolone Sodium Succinate (Solu-Medrol) 125 mg IVP EDNOW ONE Stop: 06/06/17 13:04 Last Admin: 06/06/17 13:19 Dose: 125 mg Morphine Sulfate (Morphine) 4 mg IVP EDNOW ONE Stop: 06/06/17 13:03 Last Admin: 06/06/17 13:19 Dose: 4 mg Morphine Sulfate (Morphine) 4 mg IVP EDNOW ONE Stop: 06/06/17 13:18 Last Admin: 06/06/17 13:20 Dose: Not Given Departure - Departure Disposition: [facility] In[facility] Acute Clinical Impression: Intractable back pain, Lumbar radiculopathy, right Closed compression fracture of L4 lumbar vertebra Qualifiers: Encounter type: subsequent encounter Fracture healing: with routine healing Qualified Code(s): S32.040D - Wedge compression fracture of fourth lumbar vertebra, subsequent encounter for fracture with routine healing Condition: Fair
[2017-06-06 13:12] LABS: PLATELET COUNT 203 10^3/uL (150-400)
[2017-06-06 13:22] LABS: PROTIME(PATIENT) 13.4 SEC (12.0-15.0)
[2017-06-06] MEDS ORDERED: NITROGLYCERIN 0.4 MG BTL SL PRN (15:05)
[2017-06-06] MEDS ORDERED: HYDROCODONE/APAP 5/325 TAB PO PRN (15:05)
[2017-06-06] MEDS ORDERED: ACETAMINOPHEN 325 MG TAB PO PRN (15:05)
[2017-06-06] MEDS ORDERED: ONDANSETRON DISINTEGRATING 4 MG TAB PO PRN (15:07)
[2017-06-06] MEDS ORDERED: ONDANSETRON 4 MG/2 ML VIAL IVP PRN (15:07)
[2017-06-06] MEDS ORDERED: *MD ORDERING ONLY-MEDROL DOSE PAK PO SCH (15:15)
--- NOTE | 2017-06-06 15:43 | GHP ---
[f rep st] HISTORY AND PHYSICAL DATE OF ADMISSION: 06/06/2017 CHIEF COMPLAINT: Back and leg pain. 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 On that hospitalization, he had strained his back. Lumbar CT scan (he has a pacemaker and cannot get an MRI) showed compression superior endplate of L4 as well as a Schmorl node posterior to T12. He also had diffuse arthritis. He was started on a Medrol Dosepak, had significant improvement in his back pain. He still had ongoi ng pain and numbness in his right anterior thigh, which got worse. Thus, he presented to the emergen cy department today. He denies any significant changes. He has been compliant with his medications. He has no weakness in that leg. No bowel or bladder symptoms. PAST MEDICAL AND PAST SURGICAL HISTORY: 1. Atrial fibrillation. 2. Mobitz type 2 block, status post pacemaker. 3. Coronary artery disease, status post stent to RCA in 2012. 4. Occasional V-Tach. 5. GERD. 6. Glaucoma. MEDICATIONS: Please see medication reconciliation. ALLERGIES: No known drug allergies. 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 He drinks 2-4 glasses of wine daily. FAMILY HISTORY: Positive for cancer and heart disease. REVIEW OF SYSTEMS: A 10-point review of systems is conducted and is negative, except per HPI. PHYSICAL EXAMINATION: VITAL SIGNS: Blood pressure 169/91, respiration rate 16, heart rate 60, satur ating at 98% on room air, temperature is 36.4. GENERAL: The patient is a very pleasant man who appe ars slightly uncomfortable, resting in bed. 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 CARD IOVASCULAR: Shows him to be regular rate and rhythm. He has distant S1 and S2. PULMONARY: Shows h im to be in no respiratory distress. His breath sounds are clear to auscultation bilaterally. ABDOM EN: Soft, nontender, nondistended. SKIN: Shows no rash. : Shows no [place]. NEUROLOGIC: Shows him to have subjective numbness in the right anterior thigh, otherwise he is intact. PSYCHIATRIC: S hows normal mood and affect. LABS: White count is 10.0, MCV is 100, his hemoglobin is 18. INR is 1. Basic metabolic panel is no rmal. DATA: 1. I reviewed his chart, including his previous hospitalization. 2. I reviewed his lumbar spine CT scan. 3. I reviewed his ECG from 06/01. This shows an AV-paced rhythm. IMPRESSION AND PLAN: 1. Back pain: Plan is for CT myelogram in the morning. Neurosurgery has been consulted. Further r ecommendations will be per Neurosurgery based on findings. For now, we will provide pain control wit h Medrol Dosepak, intravenous morphine as needed, oral [place]. We will keep him on pulse oximetry. Gabriella devries does have a compression fracture of L4. 2. History of coronary artery disease: We will hold his aspirin pending CT myelogram. This should be restarted soon. Otherwise, he is currently having no chest pain. 3. Mobitz type 2 block with a pacemaker: This prevents him from getting an MRI. 4. Arrhythmia: He tells me he has atrial fibrillation and ventricular tachycardia that are seen sarah etimes on his pacemaker interrogation. 5. Code status: We will make him full code, as this was his code status on his last admission. 6. Venous thromboembolism risk: He is moderate to high risk, we will hold prophylaxis in the settin g of myelogram. I have ordered him sequential compression devices for now. If he has a prolonged ho spitalization, would start prophylaxis. /[id number]/MODL
[2017-06-06] MEDS: BRIMONIDINE 0.2% 5 ML OPHT.BTL LEFTEYE SCH ×2 (15:46→21:47)
[2017-06-06] MEDS ORDERED: NON-FORMULARY NEW DRUG (Simvastatin [Zocor] 20 MG) PO SCH (21:00)
[2017-06-06] MEDS: LATANOPROSTENE BUNOD LEFTEYE SCH (21:28)
[2017-06-06] MEDS: ATORVASTATIN CALCIUM 10 MG TAB PO SCH (21:29)
[2017-06-06] MEDS: PANTOPRAZOLE SODIUM 40 MG TAB PO SCH (21:29)
[2017-06-06] MEDS: DORZOLAMIDE/TIMOLOL 10 ML OPHT.BTL LEFTEYE SCH (21:57)
[2017-06-06] MEDS: GABAPENTIN 100 MG CAP PO SCH (21:58)
[2017-06-06] MEDS ORDERED: NS 1,000 ML IV SCH (22:00)
--- NOTE | 2017-06-06 23:43 | HOSPPROG ---
Hospitalist Progress Note Assessment/Plan: CRITICAL CARE NOTE: 35 MIN OF BEDSIDE CRITICAL CARE TIME TONIGHT Caught see patient for bradycardia, lightheadedness and diaphoresis. This patient who has a history of coronary disease came in earlier today with worsening sciatica with known lumbar spine disease. He has in addition to history of coronary disease a pacemaker in place. I was called because he was having pulses of 30, without dyspnea or chest pain but with lightheadedness and diaphoresis. His blood pressures were stable. There is no fever. As I enter the room the patient is still complaining of feeling some mild lightheadedness although this has gotten better lying supine. He is still slightly diaphoretic but not nearly what he experienced earlier. He has not had fever tonight. He does admit that he had not eaten anything all day, feels like he probably is mildly dry. As I review his monitor tech tracings, will with being called sinus bradycardia of 30 by the nursing staff is actually a paced rhythm at 60, with atrial pacing for all heart beats, and intermittent stretches of ventricular pacing due to AV conduction abnormality. The ventricular pacing was causing a brought and fairly isoelectric ventricular QRS complex that was hard to see in the monitor that has a little bit of baseline noise. He has not had a palpable pulse of less than 60. Looking at the monitor his pulse is mostly at 60 but occasionally gets up to 70 when he has spontaneous sinus rhythm that fast. I reviewed all of his blood pressures and temperatures in these are all fine and his respirations have been good. He is breathing a little bit of oxygen at 2 L but his respirations look excellent. His skin is warm and dry with good color, good capillary refill, his lungs sound clear, I do not hear a new heart murmur. I did look back through his old charts. Notably in February of this year he had a BUN of 7, 1 week ago had a BUN of 14 and now has a BUN of 18 indicating possibly some did decrease body fluid volume. He does have some decreased skin turgor on examination today. He has not been having vomiting diarrhea or other fluid losses at home. I do not see any sign of bleeding at this time Overall I think he is actually reasonably stable. A his diaphoresis and lightheadedness may been multifactorial with some mild dehydration, medication side effects, pain related side effects and other factors. At this time will give him some IV fluid and watch carefully through the night. Objective: Vital Signs Temp Pulse Resp BP Pulse Ox 36.5 C 65 16 115/75 95 06/06/17 20:00 06/06/17 20:00 06/06/17 20:00 06/06/17 20:00 06/06/17 20:00 06/05/17 06/06/17 06/07/17 06:59 06:59 06:59 Intake Total 750 Balance 750 PT 13.4 SEC (12.0-15.0) 06/06/17 13:05 INR 1.00 (0.83-1.16) 06/06/17 13:05 ICD10 Worksheet Patient Problems: Problems Problem Status Onset Closed compression fracture of L4 lumbar vertebra Acute Intractable back pain Acute Lumbar radiculopathy, right Acute Influenza A Acute Lower back pain Acute Sciatica Acute
[2017-06-07] MEDS: BRIMONIDINE 0.2% 5 ML OPHT.BTL LEFTEYE SCH ×3 (06:17→21:01)
--- NOTE | 2017-06-07 07:14 | NEUSURGPN ---
Assessment/Plan: Assessment: 82 year old male with low back pain and right quad pain Plan: Please see full dictated consult when available -Patient has pacemaker, will get lumbar CT myelogram today -Continue to hold ASA -Patient responding well with IV medications until attempts to ambulate -Patient seen and examined by myself and Dr Yadav at 0715 Please call neurosurgery with any questions/concerns Subjective: Low back pain, right leg pain Objective: AxO x3 Patient is legally blind 5/5 BUE,BLE Sensation intact to light touch BLE aside from numbness in right quad and right great toe Neuro Check Frequency: per routine Urinary Catheter in Place: No - Physician Discussed Patient with : Leif Patient Seen by : Leif Neurosurgery Physical Exam - Vitals, I&O, Labs I and O 06/06/17 06/07/17 06/08/17 05:59 05:59 05:59 Intake Total 750 Output Total 300 Balance 750 -300 Weight 81.64 kg Intake: Oral (ml) 750 IV Infused (ml) 0 Output: Urine (ml) 300 Urinal 300 Other: Intake Quantity Yes Sufficient Number of Voids 0 Urinal 1 Vital Signs Temp Pulse Resp BP Pulse Ox 36.6 C 60 13 147/77 H 95 06/07/17 04:00 06/07/17 04:00 06/07/17 04:00 06/07/17 04:00 06/07/17 04:00 ICD10 Worksheet Patient Problems: Problems Problem Status Onset Closed compression fracture of L4 lumbar vertebra Acute Intractable back pain Acute Lumbar radiculopathy, right Acute Influenza A Acute Lower back pain Acute Sciatica Acute
--- NOTE | 2017-06-07 09:05 | HOSPPROG ---
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 He was admitted for back and leg pain. At that time he had a CT scan which showed compression superior endplate of L4 and a Schmori node posterior to T12. Today is my first encounter with the patient, Reviewed Dr Cochran's note in regards to lightheadedness and bradycardia. * back pain, L4 compression fracture -to get a CT myelogram -neurosurgery following - p.r.n. Medications as needed * history of coronary artery disease -aspirin home * history of Mobitz type 2 block status post pacemaker -the patient should with the previous provider that he has atrial fibrillation and ventricular tachycardia that are seen on his pacemaker interrogation * plan. Reviewed his care with Neurosurgery. The plan is for him to get a steroid injection tomorrow. Because he he had a myelogram today they are unable to do this procedure today. The patient is having significant difficulty with walking. He will require another midnight stay for further interventions which will make him inpatient Subjective: Girma is having ongoing back pain not radiating. Objective: Vital Signs Temp Pulse Resp BP Pulse Ox 36.3 C 68 18 138/86 H 92 06/07/17 08:00 06/07/17 08:00 06/07/17 08:00 06/07/17 08:00 06/07/17 08:00 06/06/17 06/07/17 06/08/17 05:59 05:59 05:59 Intake Total 750 Output Total 300 Balance 750 -300 PT 13.4 SEC (12.0-15.0) 06/06/17 13:05 INR 1.00 (0.83-1.16) 06/06/17 13:05 - Physical Exam Constitutional: appears nourished, uncomfortable, No not in pain Ears, Nose, Mouth, Throat: hearing normal Cardiovascular: regular rate and rhythym Respiratory: no respiratory distress Gastrointestinal: normoactive bowel sounds Skin: warm Musculoskeletal: muscular tenderness Neurologic: AAOx3 Psychiatric: interacting appropriately, not anxious, not encephalopathic ICD10 Worksheet Patient Problems: Problems Problem Status Onset Closed compression fracture of L4 lumbar vertebra Acute Intractable back pain Acute Lumbar radiculopathy, right Acute Influenza A Acute Lower back pain Acute Sciatica Acute
[2017-06-07] MEDS: DORZOLAMIDE/TIMOLOL 10 ML OPHT.BTL LEFTEYE SCH ×2 (09:39→20:49)
[2017-06-07] MEDS ORDERED: CALCIUM CARBONATE 500 MG CHEWABLE TAB PO PRN (09:58)
[2017-06-07] MEDS ORDERED: IOPAMIDOL (ISOVUE-M 200) 20 ML VIAL ONE (10:41)
[2017-06-07] MEDS ORDERED: LIDOCAINE 1% 300 MG/30 ML SDV ONE (10:41)
[2017-06-07] MEDS ORDERED: LACTULOSE 20 GM/30 ML UDCUP PO PRN (11:39)
[2017-06-07] MEDS ORDERED: BISACODYL 10 MG SUPP PR PRN (11:39)
[2017-06-07] MEDS ORDERED: MAGNESIUM HYDROXIDE 30 ML UDCUP PO PRN (11:39)
--- NOTE | 2017-06-07 13:11 | GCON ---
[f rep st] CONSULTATION INPATIENT CONSULTATION CHIEF COMPLAINT: Low back pain, right leg pain. 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 The patient improved some fo llowing dose of Solu-Medrol as well as Medrol Dosepak and gabapentin. The patient states that his pa in began increasing again yesterday and he was unable to get out of bed due to the severity of his pa in. The patient's pain is located in his lower back and, as well, in his right quadriceps. The katerina ent feels that walking increases his painful symptoms and they seem to be more tolerable if he is sit ting in bed. The patient denies any new weakness, any saddle anesthesia or any difficulties with his bowel or bladder. The patient has a CT myelogram of the lumbar spine pending for this morning. REVIEW OF SYSTEMS: A 10-point review of systems was performed and negative aside from what was menti oneryan in the HPI. PAST MEDICAL HISTORY: 1. Atrial fibrillation. 2. 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 3. Coronary artery disease status post stent to the RCA in 2012. 4. Occasional ventricular tachycardia. 5. GERD. 6. Glaucoma. PAST SURGICAL HISTORY: 1. Pacemaker placement. 2. Coronary stent placement in 2012. CURRENT MEDICATIONS: Tylenol 650 mg p.o. q.8 hours for pain and headache, hydrocodone 1-2 tabs q.4 p .r.n. pain, Lipitor 10 mg p.o. at bedtime, eyedrops: Alphagan 0.2% 1 drop left eye three times daily , Flexeril 10 mg p.o. three times daily p.r.n. spasms, Cosopt eyedrops 1 drop left eye twice daily, g abapentin 200 mg p.o. at bedtime. Patient is currently on a Medrol Dosepak. ALLERGIES: No known drug allergies. FAMILY HISTORY: No pertinent family medical history to the current situation. SOCIAL HISTORY: Patient is a retired urgent care physician. He has never smoked cigarettes. He lang s not drink. He does not use illicit drugs. LABORATORY RESULTS: White blood cell count 10.05, hemoglobin 18.0, hematocrit 50.6, platelet count 2 03. PT 13.4, INR is 1.0, aPTT is 24.0. Sodium is 141, potassium 4.2, BUN 18, creatinine 0.8, glucos e is 96. DIAGNOSTIC IMAGING: CT myelogram lumbar spine is pending for today. PHYSICAL EXAMINATION: VITAL SIGNS: Blood pressure is 138/86, heart rate 68, respiratory rate 18, ox ygen saturations 92% on room air, temperature is 36.3 degrees Celsius. HEENT: Head is normocephalic and atraumatic. Pupils are equal, round, and reactive to light. EOMIs intact. Full visual christine by confrontation. Ears are patent. Nose is patent. RESPIRATORY/CARDIAC: Deferred. ABDOMEN/GENITO URINARY/RECTAL: Deferred. NEUROLOGICAL: The patient is awake, alert and oriented to name, place, l ocation, date, time, and situation. Memory is intact to immediate past and current events. SPEECH: No dysphonia or aphasia. CRANIAL NERVES: 2-12 are grossly intact aside from ocular testing due to patient's chronic blindness. MOTOR: The patient has 5/5 strength in all muscle groups in bilateral upper and lower extremities to include deltoids, biceps, triceps, brachioradialis, wrist flexion, ext ensors, administrative coordinator, intrinsic fingers, iliopsoas, quadriceps, hamstrings, plantar flexion, dorsiflexion, EH L testing. Sensation is grossly intact to light touch throughout all dermatomal distributions in the bilateral lower extremities. The patient does note some numbness around the right quad region to li ght touch. Negative straight leg raise. Negative SHANNON test. REFLEXES: Biceps, triceps, brachiora dialis are 2+/4. Knee jerk and ankle jerk are 1+/4. Toes are downgoing bilaterally. Rupali sign is negative. Babinski is negative. There is no evidence of clonus. ASSESSMENT AND PLAN: The patient is an 82-year-old gentleman who was admitted last week for severe l ower back and right quad pain. The patient reportedly improved following administration of steroids and Medrol Dosepak and gabapentin. The patient was readmitted with increasing pain yesterday. [facility] and is unable to get an MRI. We will further evaluate his lumbar spi ne symptoms with a CT myelogram which has already been ordered by the hospitalist. The patient's las t dose of aspirin was 162 mg on Wednesday. We will continue to hold his aspirin until we see the CT m yelogram results and determine plan of care. We will consider getting an epidural steroid injection with Interventional Radiology if indicated. We could also consider surgery if warranted. The patien lupillo understands the plan and is awaiting to get a CT myelogram. The patient was seen by myself, and examined at the patient's bedside today, June 07, 2017 at 7:15 a .m., by myself and Dr. Yadav. Please call Neurosurgery with any questions or concerns. We will con tinue to follow this patient and await the myelogram results. /[id number]/MODL
[2017-06-07] MEDS: CYCLOBENZAPRINE 10 MG TAB PO PRN (13:35)
--- NOTE | 2017-06-07 15:05 | ASMTCMCOM ---
CM Note CM Note Notes: Pt was admitted last week for lower back pain and quad pain and dc'd home. He is now readmitted w/increasing pain. Discussed w/RN and reviewed MD notes. Pt may have steroid injection, surgery also possibility. 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 PT/OT rec's still pending. CM will follow. Date Signed: 06/07/2017 03:04 PM Electronically Signed By:Rahel Ovalle RN
--- NOTE | 2017-06-07 16:36 | PDMN ---
Medical Necessity Medical necessity: Change to IP, as of 06/07/17, per PROMOTIONS DIRECTOR; los >2 mn for ongoing management of L4 compression fx with back pain & difficulty walking; admit for further intervention/monitoring, IVFs, pain management & therapies; hx AFIB, VTACH, CAD s/p stents, Mobitz type 2 block s/p pacer; per progress note & order 06/07/17
[2017-06-07] MEDS: ACETAMINOPHEN 325 MG TAB PO PRN ×2 (18:46→23:28)
[2017-06-07] MEDS: PANTOPRAZOLE SODIUM 40 MG TAB PO SCH (20:50)
[2017-06-07] MEDS: ATORVASTATIN CALCIUM 10 MG TAB PO SCH (20:50)
[2017-06-07] MEDS: GABAPENTIN 100 MG CAP PO SCH (20:50)
[2017-06-07] MEDS: LATANOPROSTENE BUNOD LEFTEYE SCH (20:56)
[2017-06-07] MEDS: SENNOSIDES/DOCUSATE SODIUM TAB PO SCH (23:03)
[2017-06-08] MEDS: ACETAMINOPHEN 325 MG TAB PO PRN ×2 (04:38→17:56)
--- NOTE | 2017-06-08 07:52 | NEUSURGPN ---
Assessment/Plan: Assessment: 82 year old male with low back pain and right quad pain that has had 2 admissions over the last week for this pain Plan: -pt with right sided hip and thigh pain-CT myelogram shows right sided severe L2 /3 stenosis -plan for right sided CINDY at L2/3 with IR today -increased his pain medications -Patient has pacemaker -Continue to hold ASA-last dose on 06/05 -Patient had responded well with IV medications until attempts to ambulate -Patient seen and examined by myself and Dr Yadav -pt understands and agrees with plan -NPO for IR procedure -please call neurosurgery with any questions/concerns Subjective: Awake and alert. NAD. Pt with continued right sided pain. No venegas/neck/chest/ abd or gu complaints. No f/c/n/v/d. Objective: AAO x 3 CN 2-12 grossly intact +lt touch KADEN x 4 Neuro Check Frequency: per routine Urinary Catheter in Place: No - Physician Discussed Patient with : Leif Patient Seen by : Leif Neurosurgery Physical Exam - Vitals, I&O, Labs I and O 06/07/17 06/08/17 06/09/17 05:59 05:59 05:59 Intake Total 750 150 Output Total 500 Balance 750 -350 Intake: Oral (ml) 750 IV Infused (ml) 150 Ns 1,000 ml @ 75 mls/hr 150 IV CONT ALICE Rx#: [id number] Output: Urine (ml) 500 Urinal 500 Other: Intake Quantity Yes Yes Sufficient Number of Voids Toilet 1 Urinal 1 Number of Stools Toilet 1 Vital Signs Temp Pulse Resp BP Pulse Ox 36.6 C 60 16 142/87 H 93 06/08/17 07:36 06/08/17 07:36 06/08/17 07:36 06/08/17 07:36 06/08/17 07:36 ICD10 Worksheet Patient Problems: Problems Problem Status Onset Closed compression fracture of L4 lumbar vertebra Acute Intractable back pain Acute Lumbar radiculopathy, right Acute Influenza A Acute Lower back pain Acute Sciatica Acute
[2017-06-08] MEDS: POLYETHYLENE GLYCOL 3350 17 GM PKT PO SCH (09:02)
[2017-06-08] MEDS: SENNOSIDES/DOCUSATE SODIUM TAB PO SCH ×2 (09:02→21:21)
[2017-06-08] MEDS: DORZOLAMIDE/TIMOLOL 10 ML OPHT.BTL LEFTEYE SCH ×2 (10:16→21:20)
[2017-06-08] MEDS: BRIMONIDINE 0.2% 5 ML OPHT.BTL LEFTEYE SCH ×3 (10:17→21:20)
[2017-06-08] MEDS: CYCLOBENZAPRINE 10 MG TAB PO PRN (11:01)
[2017-06-08] MEDS ORDERED: IOPAMIDOL (ISOVUE-M 300) 15 ML VIAL ONE (12:56)
[2017-06-08] MEDS ORDERED: DEXAMETHASONE 10 MG/ML VIAL ONE (12:56)
--- NOTE | 2017-06-08 13:16 | PDRADPN ---
Radiology Procedure Note Date of Procedure: 06/08/17 Radiologist: Romulo Ash Anesthesia: Local (Specify) Pre-op Diagnosis: L2/3 right nerve root impingement, disc herniation Post-op Diagnosis: same Indication: pain Procedure: CINDY at L2/3 Inf/Abcess present in the surg proc area at time of surgery?: No EBL: Minimal Complications: none
--- NOTE | 2017-06-08 14:22 | HOSPPROG ---
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 He was admitted for back and leg pain. At that time he had a CT scan which showed compression superior endplate of L4 and a Schmori node posterior to T12. * back pain, -s/p CINDY today -has less pain during my interview -cont to have pain in right upper thigh * history of coronary artery disease -aspirin on hold due to the above * history of Mobitz type 2 block status post pacemaker -the patient should with the previous provider that he has atrial fibrillation and ventricular tachycardia that are seen on his pacemaker interrogation *dvt prophyaxis: athrombic pumps, LMWH not ordered due to the above procedure, if he stays; will need this. * plan. If better, hopefully can dc tomorrow. Will see how he does w PT and OT. Subjective: Girma thinks his back pain is better. Objective: Vital Signs Temp Pulse Resp BP Pulse Ox 36.6 C 60 16 125/72 H 97 06/08/17 12:00 06/08/17 12:00 06/08/17 12:00 06/08/17 12:00 06/08/17 12:00 06/07/17 06/08/17 06/09/17 05:59 05:59 05:59 Intake Total 750 150 Output Total 500 Balance 750 -350 PT 13.4 SEC (12.0-15.0) 06/06/17 13:05 INR 1.00 (0.83-1.16) 06/06/17 13:05 - Physical Exam Constitutional: no apparent distress, appears nourished Eyes: other (blind) Ears, Nose, Mouth, Throat: hearing normal Cardiovascular: regular rate and rhythym Respiratory: no respiratory distress Skin: warm Neurologic: AAOx3 Psychiatric: interacting appropriately ICD10 Worksheet Patient Problems: Problems Problem Status Onset Influenza A Acute Lower back pain Acute Sciatica Acute Intractable back pain Acute Lumbar radiculopathy, right Acute Closed compression fracture of L4 lumbar vertebra Acute
[2017-06-08] MEDS: LATANOPROSTENE BUNOD LEFTEYE SCH (21:20)
[2017-06-08] MEDS: ATORVASTATIN CALCIUM 10 MG TAB PO SCH (21:21)
[2017-06-08] MEDS: GABAPENTIN 100 MG CAP PO SCH (21:21)
[2017-06-08] MEDS: PANTOPRAZOLE SODIUM 40 MG TAB PO SCH (21:22)
--- NOTE | 2017-06-09 07:06 | NEUSURGPN ---
Assessment/Plan: Assessment: 82 year old male with low back pain and right quad pain that has had 2 admissions over the last week for this pain Plan: -pt had right sided hip and thigh pain-CT myelogram shows right sided severe L2/ 3 stenosis -pt is s/p right sided CINDY at L2/3 with IR yesterday -pt is about 60-70% better -plan to work with PT/OT today and dc home later today if passes -Patient has pacemaker -ok to resume ASA-last dose on 06/05 -Patient seen and examined by myself and Dr Yadav -pt understands and agrees with plan -please call neurosurgery with any questions/concerns Subjective: Awake and alert. NAD. Pt with minimal lower back pain and RLE pain is about 60 -70% better. No venegas/neck/cp/sob/abd or gu complaints. Objective: AAO x 3 CN 2-12 grossly intact +lt touch KADEN x 4 5/5 BUE/BLE = Neuro Check Frequency: per routine Urinary Catheter in Place: No - Physician Discussed Patient with : Leif Patient Seen by : Leif Neurosurgery Physical Exam - Vitals, I&O, Labs I and O 06/08/17 06/09/17 06/10/17 05:59 05:59 05:59 Intake Total 150 650 Output Total 500 400 150 Balance -350 250 -150 Intake: Oral (ml) 650 IV Infused (ml) 150 Ns 1,000 ml @ 75 mls/hr 150 IV CONT ALICE Rx#: [id number] Output: Urine (ml) 500 400 150 Urinal 500 400 150 Other: Intake Quantity Yes Sufficient Number of Voids Toilet 1 2 1 Urinal 1 1 1 Number of Stools Toilet 1 Vital Signs Temp Pulse Resp BP Pulse Ox 36.6 C 62 17 151/81 H 96 06/09/17 04:00 06/09/17 04:00 06/09/17 04:00 06/09/17 04:00 06/09/17 04:00 ICD10 Worksheet Patient Problems: Problems Problem Status Onset Closed compression fracture of L4 lumbar vertebra Acute Intractable back pain Acute Lumbar radiculopathy, right Acute Influenza A Acute Lower back pain Acute Sciatica Acute
[2017-06-09] MEDS ORDERED: CALCIUM CARBONATE 500 MG CHEWABLE TAB PO PRN (07:09)
[2017-06-09] MEDS: BRIMONIDINE 0.2% 5 ML OPHT.BTL LEFTEYE SCH (07:31)
[2017-06-09] MEDS: POLYETHYLENE GLYCOL 3350 17 GM PKT PO SCH (07:34)
[2017-06-09] MEDS: SENNOSIDES/DOCUSATE SODIUM TAB PO SCH (07:34)
[2017-06-09 07:59] VITALS: BP 146/84
[2017-06-09] MEDS ORDERED: ASPIRIN 81 MG CHEWABLE TAB PO SCH (09:00)
[2017-06-09] MEDS: DORZOLAMIDE/TIMOLOL 10 ML OPHT.BTL LEFTEYE SCH (10:01)
--- NOTE | 2017-06-09 10:08 | PDIAF ---
- Diagnosis Diagnosis: L2/3 right sided stenosis Code Status: Full Code - Medication Management Discharge Medications: Medications to Continue on Transfer Acetaminophen [Tylenol 325mg (*)] 650 mg PO Q8HRS PRN 02/11/17 [Last Taken 02/11 09:00] Aspirin [Aspirin 81mg (*)] 162 mg PO DAILY 02/11/17 [Last Taken 06/06/17] Dorzolamide/Timolol [Cosopt (*)] 1 drops LEFTEYE BID 02/11/17 [Last Taken ] Pantoprazole Sodium [Protonix 40mg (*)] 40 mg PO HS 02/11/17 [Last Taken ] Simvastatin [Zocor] 20 mg PO HS 02/11/17 [Last Taken 05/31/17] Calcium Carbonate [Tums 500MG (*)] 500 mg PO TID PRN tab.chew 02/17/17 [Last Taken Unknown] Nitroglycerin [Nitrostat 0.4 mg (*)] 0.4 mg SL Q5M PRN btl 02/17/17 [Last Taken Unknown] Brimonidine 0.2% [Alphagan 0.2%] 1 drops LEFTEYE TID 06/01/17 [Last Taken Unknown] Latanoprostene Bunod [Vyzulta] 1 drop LEFTEYE HS 06/01/17 [Last Taken Unknown] Cyclobenzaprine [Flexeril 10 MG (*)] 10 mg PO TID PRN 06/06/17 [Last Taken Unknown] Acetaminophen [Tylenol 325mg (*)] 650 mg PO Q4HRS PRN tab 06/09/17 [Last Taken Unknown] Cyclobenzaprine [Flexeril 10 MG (*)] 10 mg PO TID PRN #30 tab 06/09/17 [Last Taken Unknown] Gabapentin [Neurontin 100 MG (*)] 200 mg PO HS #60 cap 06/09/17 [Last Taken Unknown] Hydrocodone/APAP 5/325 [[place] 5/325 (*)] 1 - 2 tab PO Q4 PRN #60 tab 06/09/17 [ Last Taken Unknown] Sennosides/Docusate Sodium [Senokot-S] 1 - 2 tab PO BID #30 tab 06/09/17 [Last Taken Unknown] Top Screw Antibiotics: none Discharge Medications: Refer to the Discharge Home Medication list for PRN reason. PICC Care - Routine: N/A - Orders Services needed: Physical Therapy Isolation Type: None Oxygen: to keep O2 sat above 90% Diet Recommendation: no restrictions on diet Diet Texture: Regular Texture Diet Additional Instructions: -there is a Rx for a medrol dose pack on the chart that you can take only on your trip if needed -we dont recommend taking any more steroids at this time due to the amount of steroids that you have taken -call with any questions or concerns -take medications as directed -see Dr Diaz team in 1-2 weeks for a recheck - Follow Up Care Current Providers and Referrals: Chris Moctezuma MD [Primary Care Provider] - Maria Elena Yadav MD [Medical Doctor] - (follow up in 1-2 weeks)
--- NOTE | 2017-06-09 10:52 | ASMTCMCOM ---
CM Note CM Note Notes: Pt medically stable for d/c. Today PT rec [facility]; spoke with pt and about this rec and they decline home care. Date Signed: 06/09/2017 10:51 AM Electronically Signed By:INEZ Newton
--- NOTE | 2017-06-09 10:52 | ASDISCHSUM ---
Discharge Information Plan Status:Home with No Needs Medically Cleared to Leave: Discharge Date:06/09/2017 10:43 AM CM D/C Disposition:Home, Routine, Self-Care ADT D/C Disposition:Home, Routine, Self-Care Projected Discharge Date:06/09/2017 10:43 AM Transportation at D/C:Family Discharge Delay Reason: Follow-Up Date:06/09/2017 10:43 AM Discharge Slot: Final Diagnosis: Placement Information Patient Contact Information Contact Name:RADHA Relationship: Address:[facility] [address] [place] Work Phone: [facility]:[place] Alternate Phone: [facility]/Zip Code:[place] [address] Email: Financial Information Financial Class:Medicare Primary Plan Desc:MEDICARE INPATIENT Primary Plan Number:[id number] Secondary Plan Desc:[employer]ARP/MDR SUPPLEMENT Secondary Plan Number:[id number] Assessment Information [facility] CM Progress Note CM Note CM Note Notes: Pt was admitted last week for lower back pain and quad pain and dc'd home. He is now readmitted w/increasing pain. Discussed w/RN and reviewed MD notes. Pt may have steroid injection, surgery also possibility. 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 PT/OT rec's still pending. CM will follow. Date Signed: 06/07/2017 03:04 PM Electronically Signed By:Rahel Ovalle RN [facility] CM Progress Note CM Note CM Note Notes: Pt medically stable for d/c. Today PT rec [facility] [place]; spoke with pt and about this rec and they decline home care. Date Signed: 06/09/2017 10:51 AM Electronically Signed By:INEZ Newton Intervention Information Intervention Type:SHAFER-Not Delivered Date of Service:06/07/2017 10:30 AM Patient Type:Observation Staff Member:Che Ferreira Hours: Discipline: Severity: Comment:Patient is legally blind. I read over SHAFER form with him and he gave verbal permission for CM to sign on his behalf. Intervention Type:*IM-Signed Date of Service:06/09/2017 10:37 AM Patient Type:Inpatient Staff Member:Che Ferreira Hours: Discipline: Severity: Comment:
--- NOTE | 2017-06-09 14:12 | GDS ---
[f rep st] DISCHARGE SUMMARY Discharged to home on 06/09/2017 with home care. PRIMARY DIAGNOSIS: One week of continued right-sided sciatic pain in the right thigh who was seen a week prior with similar complaints. OPERATION/PROCEDURES: 1. CT myelogram. 2. Epidural steroid injection, right L2-3. 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 He was admitted to the hospital a week befo re his current admission related to this discharge summary and felt better with oral steroids and servando n medication. He was discharged home. Unfortunately, his symptoms worsened to where they were 10/10 . He came into the emergency department. He was admitted to the internal medicine service, and Neur osurgery was consulted. He had been trying Medrol Dosepak, Vicodin, Neurontin, and Flexeril. He cam e to the ER with unrelenting pain. He does have a pacemaker, and a CT myelogram was performed on . The CT myelogram was reviewed with Dr. Yadav and noted to have right-sided L2-3 stenosis. He does have other degenerative changes throughout his lumbar spine that were multilevel in nature, but the worst and most prominent area of stenosis on the right side at L2-3. He does have a stable c hronic compression fracture of L4. The patient underwent an epidural steroid injection with Interven tional Radiology on the right side at L2-3 on 06/08/2017, which he had excellent response to. Post p rocedure day 1, he admitted to 60%, 70% improvement in his symptoms. The patient was seen on a daily basis, both by Neurosurgery as well as Internal Medicine. We maximized his pain medication. He had been given a Medrol Dosepak as well as epidural steroid injections. With his discharge paperwork, I included a prescription for a Medrol Dosepak that he will use in the event of urgency over the next few weeks. In a few weeks, he is going on a trip to [place] and would like this prescription as a back up in case some of his symptoms return. He was written for a prescription for some pain medicine as well as Flexeril as well as a stool softener. The patient was instructed on ambulating, should avoid any bending or twisting. I discharged him on 06/09/2017. He will follow up with us in the next wee k or two if his symptoms are worsened. Otherwise, we will see him after his trip to [place]. I did sp howiek with his yesterday regarding this plan. She was in agreement with this. At this point, we held his aspirin on Wednesday in the event that he may need surgery. He felt much better this morning . His aspirin was restarted. Please see his med rec form. CONSULTS: 1. Admitted to Internal Medicine. 2. Neurosurgery. COMPLICATIONS: None. DISCHARGE CONDITION: Stable and improved. DISCHARGE INSTRUCTIONS: Standard discharge instructions were given to the patient following an epidu ral steroid injection as well as a diagnosis of lumbar stenosis. We talked about worsening symptoms, new pain, weakness, numbness, tingling, loss of bowel or bladder control, problems with gait or nae nce. Patient will follow up with us as directed and as noted above in discussion in 1-2 weeks prior to his trip should his symptoms return. Should his symptoms return and worsen to 10/10, he could be admitted, and we will consent him for a right L2-3 decompression. The patient as well as his we re in agreement. All questions and concerns were answered. /[id number]/MODL
== END 2017-06-09 10:43 | disposition home or self-care (01) | DRG 552 ==
LOC: INTOOBSV 13:10 → F3N 14:07 → OBSVTOIN 15:07
PROVIDERS: ADMIT Student in an Organized Health Care Education/Training Program; ATTEND Student in an Organized Health Care Education/Training Program
PROC: B02B1ZZ Computerized Tomography (CT Scan) of Spinal Cord using Low Osmolar Contrast (ICD-10-PCS; principal; 2017-06-07)
PROC: 3E0R3BZ Introduction of Anesthetic Agent into Spinal Canal, Percutaneous Approach (ICD-10-PCS; 2017-06-08)
PROC: 3E0R33Z Introduction of Anti-inflammatory into Spinal Canal, Percutaneous Approach (ICD-10-PCS; 2017-06-08)
DX: M48.061 Spinal stenosis, lumbar region without neurogenic claudication (principal); M51.36 Other intervertebral disc degeneration, lumbar region; S32.040D Wedge compression fracture of fourth lumbar vertebra, subsequent encounter for fracture with routine healing; I48.91 Unspecified atrial fibrillation; I25.10 Atherosclerotic heart disease of native coronary artery without angina pectoris; H40.9 Unspecified glaucoma; N20.0 Calculus of kidney; K21.9 Gastro-esophageal reflux disease without esophagitis; Z95.0 Presence of cardiac pacemaker; Z95.5 Presence of coronary angioplasty implant and graft
CPT/HCPCS: 96374; 97161-GP; 97165-GO; G0378; G8978-GP-CI; G8979-GP-CI; G8980-GP-CI; G8987-GO-CI; G8988-GO-CI; G8989-GO-CI; J1100; J2270; J2930; Q9966; Q9967

== ENCOUNTER 2017-06-14 12:40 | Observation (INO) | payer OTHER, MEDICARE ==
[2017-06-14] MEDS ORDERED: CHLORHEXIDINE GLUC HIBICLENS 118 ML BTL TP ONE (12:47)
[2017-06-14] MEDS ORDERED: BUPIVACAINE 0.25% 30 ML SDV ONE (12:47)
[2017-06-14] MEDS ORDERED: DEPO METHYLPREDNISOLONE 40 MG/ML SDV ONE (12:47)
[2017-06-14] MEDS ORDERED: THROMBIN (BOVINE) 5,000 UNIT VIAL TP ONE (12:47)
[2017-06-14] MEDS ORDERED: BACITRACIN 50,000 UNITS/10 ML SYR IRR ONE (12:48)
--- NOTE | 2017-06-14 13:26 | PDHPUP ---
History & Physical Update H&P update statement: This history and physical update is based on an assessment of the patient which was completed after admission or registration (within 24 hours), but prior to the surgery/procedure. H&P update: H&P reviewed & patient examined, no change in patient's condition since H&P completed, changes noted
[2017-06-14] MEDS ORDERED: ACETAMINOPHEN 500 MG TAB PO ONE (13:34)
[2017-06-14] MEDS ORDERED: ceFAZolin 2 GM/SWFI 2 GM/20 ML SYR IVP ONE (13:34)
[2017-06-14] MEDS ORDERED: LR 1,000 ML IV ONE (13:53)
--- NOTE | 2017-06-14 14:39 | PDANEPAE ---
ANE History of Present Illness 82 year old male for microdiscetomy. ANE Past Medical History - Cardiovascular History Hx Hypertension: Yes Hx Arrhythmias: Yes Hx Chest Pain: Yes Hx Coronary Artery / Peripheral Vascular Disease: Yes Hx CHF / Valvular Disease: No Hx Palpitations: No Cardiovascular History Comment: pt had chest pain 2 days ago 5/2 did not seek help,took nitro - Pulmonary History Hx COPD: No Hx Asthma/Reactive Airway Disease: No Hx Recent Upper Respiratory Infection: No Hx Oxygen in Use at Home: No Hx Sleep Apnea: Yes Sleep Apnea Screening Result - Last Documented: Negative Pulmonary History Comment: POSITIVE CARMELO - Neurologic History Hx Cerebrovascular Accident: No Hx Seizures: No Hx Dementia: No - Endocrine History Hx Diabetes: No - Renal History Hx Renal Disorders: No Renal History Comment: kidney stone - Liver History Hx Hepatic Disorders: No - Neurological & Psychiatric Hx Hx Neurological and Psychiatric Disorders: No - Cancer History Hx Cancer: No - Congenital Disorder History Hx Congenital Disorders: No - GI History Hx Gastrointestinal Disorders: Yes Gastrointestinal History Comment: reflux - Other Health History Other Health History: pt is blind. 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 anucliation of R eye. pacemaker placed 2012 ANE Review of Systems Review of Systems: - Exercise capacity METS (RN): 3 METS - Pacemaker Pacemaker Type: Permanent Pacer/Defib Pacemaker Ship Runner: Medtronic Pacemaker Model: adapta L ADDRL1 Pacemaker Mode: DDD Date Pacemaker Last Checked: 04/07/17 ANE Patient History - Allergies Allergies/Adverse Reactions: No Known Allergies Allergy (Verified 06/11/17 17:42) - Home Medications Home Medications: Acetaminophen [Tylenol 325mg (*)] 02/11/17 [Last Taken 06/13/17 21:00] Aspirin [Aspirin 81mg (*)] 02/11/17 [Last Taken 06/11/17] Dorzolamide/Timolol [Cosopt (*)] 02/11/17 [Last Taken 06/13/17 21:00] Pantoprazole Sodium [Protonix 40mg (*)] 02/11/17 [Last Taken 06/13/17 21:00] Simvastatin [Zocor] 02/11/17 [Last Taken 06/13/17 21:00] Brimonidine 0.2% [Alphagan 0.2%] 06/01/17 [Last Taken 06/14/17 06:00] Latanoprostene Bunod [Vyzulta] 06/01/17 [Last Taken 06/13/17 21:00] Calcium Carbonate [Tums 500MG (*)] 06/11/17 [Last Taken 06/13/17 21:00] Cyclobenzaprine [Flexeril 10 MG (*)] 06/11/17 [Last Taken 06/11/17] Gabapentin [Neurontin 100 MG (*)] 06/11/17 [Last Taken 06/13/17 21:00] Hydrocodone/APAP 5/325 [[place] 5/325 (*)] 06/11/17 [Last Taken 06/13/17] Nitroglycerin [Nitrostat 0.4 mg (*)] 06/11/17 [Last Taken 06/07/17] Sennosides/Docusate Sodium [Senokot-S] 06/11/17 [Last Taken 06/13/17 08:00] - NPO status NPO Status: no food or drink >8 hours NPO Since - Liquids (Date): 06/13/17 NPO Since - Liquids (Time): 20:00 NPO Since - Solids (Date): 06/13/17 NPO Since - Solids (Time): 18:00 - Anes Hx Anes Hx: no prior problems - Smoking Hx Smoking Status: Never smoked Marijuana use: No - Alcohol Use Alcohol Use: Rarely - Family Anes Hx Family Anes Hx: neg - N/A Family Hx Anesthesia Complications: none ANE Labs/Vital Signs - Vital Signs Vital Signs: reviewed preoperatively; see RN documention for details Blood Pressure: 136/90 Heart Rate: 66 Respiratory Rate: 16 O2 Sat (%): 95 Height: 172.72 cm Weight: 81.647 kg ANE Physical Exam - Airway Mallampati Score: Class 2 Mouth exam: normal dental/mouth exam - Pulmonary Pulmonary: no respiratory distress - Cardiovascular Cardiovascular: regular rate and rhythym - ASA Status ASA Status: III ANE Anesthesia Plan Anesthesia Plan: general endotracheal anesthesia Total IV Anesthesia: No
[2017-06-14] MEDS ORDERED: PROPOFOL/EMULSION 500 MG/50 ML BOTTLE IV ONE (14:45)
[2017-06-14] MEDS ORDERED: REMIFENTANIL HCL 1 MG VIAL ONE (14:45)
[2017-06-14] MEDS ORDERED: ROCURONIUM 100 MG/10 ML VIAL ONE (14:48)
[2017-06-14] MEDS ORDERED: PROPOFOL 200 MG/20 ML VIAL ONE (14:51)
[2017-06-14] MEDS ORDERED: fentaNYL 100 MCG/2 ML INJ ONE ×3 (14:51→18:32)
[2017-06-14] MEDS ORDERED: ONDANSETRON 4 MG/2 ML VIAL ONE (14:53)
[2017-06-14] MEDS ORDERED: DEXAMETHASONE 4 MG/ML VIAL ONE (14:53)
[2017-06-14] MEDS ORDERED: MAGNESIUM HYDROXIDE 30 ML UDCUP PO PRN (15:06)
[2017-06-14] MEDS ORDERED: METHOCARBAMOL 750 MG TAB PO PRN (15:06)
[2017-06-14] MEDS ORDERED: diphenhydrAMINE 25 MG CAP PO PRN (15:06)
[2017-06-14] MEDS ORDERED: ONDANSETRON 4 MG/2 ML VIAL IVP PRN ×2 (15:06→16:05)
[2017-06-14] MEDS ORDERED: BISACODYL 10 MG SUPP PR PRN (15:06)
[2017-06-14] MEDS ORDERED: POLYETHYLENE GLYCOL 3350 17 GM PKT PO PRN (15:06)
[2017-06-14] MEDS ORDERED: ONDANSETRON DISINTEGRATING 4 MG TAB PO PRN (15:06)
[2017-06-14] MEDS ORDERED: LACTULOSE 20 GM/30 ML UDCUP PO PRN (15:06)
[2017-06-14] MEDS ORDERED: NS 1,000 ML IV SCH (15:15)
[2017-06-14] MEDS ORDERED: oxyCODONE IR 5 MG TAB PO PRN (16:05)
[2017-06-14] MEDS ORDERED: PHENYLEPHRINE HCL 100 MCG/ML SYR IVP PRN (16:05)
[2017-06-14] MEDS ORDERED: LR 500 ML IV PRN (16:05)
[2017-06-14] MEDS ORDERED: ACETAMINOPHEN 500 MG TAB PO PRN (16:05)
[2017-06-14] MEDS ORDERED: NALOXONE HCL 0.4 MG/ML INJ IVP PRN (16:05)
[2017-06-14] MEDS ORDERED: epHEDrine SULFATE 10 MG/ML SYR IVP PRN (16:05)
[2017-06-14] MEDS ORDERED: HYDROmorphONE/DILAUDID 2 MG/ML INJ IVP PRN (16:05)
--- NOTE | 2017-06-14 17:11 | POSTOPPROG ---
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
--- NOTE | 2017-06-14 18:01 | GOP ---
[f rep st] OPERATIVE REPORT DATE OF OPERATION: SURGEON: Vinayak Yadav MD NEUROSURGEON: Vinayak Yadav MD FUEL AGENT: Alayna Beck, Nurse Practitioner PREOPERATIVE DIAGNOSIS: Herniated nucleus pulposus, right L2-3. POSTOPERATIVE DIAGNOSIS: Herniated nucleus pulposus, right L2-3. PROCEDURE PERFORMED: Right L2-3 microdiskectomy, microscope. FINDINGS: ESTIMATED BLOOD LOSS: 200 cc. 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 It demonstrated evidence of right lateral recess or right lateral spinal stenosis at L2-3 d ue to disk or bony osteophyte formation in the right L2-3 lateral portion of the spinal canal. He venegas d an epidural steroid injection and got transient relief. He tried systemic steroids and got transie nt relief, and usually having terrible pain and I suggested surgery. He knew there was risk of failu re, that surgery may or may not take away the pain, but it is a reasonable treatment option given his attempted conservative measures. He knew there was risk of recurrent disk herniation, nerve injury, as well as possible need for additional spinal surgery and he wanted to proceed. He is an elderly g entleman. He had significant coronary artery disease and had been on aspirin up until the weekend pr ior to surgery, and we knew that the aspirin may be an issue as well with bleeding, but I thought it was reasonable to proceed. DESCRIPTION OF PROCEDURE: The patient was taken to the operating room, placed in supine position. G eneral anesthesia was begun. He was flipped prone onto the Wilfred frame. Care was taken to pad all points of contact. His back was sterilely prepped and draped in usual fashion. Made a midline incis ion above the L2-3 interspace. The subcutaneous tissue was dissected using Bovie cautery down throug h the fascia and a subperiosteal dissection was made down to the right L2-3 lamina. We removed the r ostral most portion of the L3 spinous process and the inferior most portion of the L2 spinous process to allow us to undercut and approach the L2-3 lateral portion of the canal without removing as much facet. We drilled a right L2-3 hemilaminotomy with a very minimal medial facetectomy, opened ligamen pop flavum and decompressed the lateral aspects of the spinal canal, and decompressed all way out to the L3 pedicle. We worked our way up to the L2-3 disk. There was a large amount of epidural bleedin g, we controlled with Gel-Foam but during the case, we did lose a fair amount of blood, none of it wa s that difficult to control overall. We swept the L3 root medially and underneath this at the L2-3 l evel was prolapsed anulus and disk material present underneath the root. We removed this material. We incised the L2-3 disk, and removed some additional loose pieces of disk, and then thoroughly probe d the entire area. There was no additional compressive lesion present. The prolapse in the lateral aspect of the spinal canal and adjacent to the L3 root had been removed. We irrigated with antibioti c saline solution, placed some Depo-Medrol over the right L3 root, and then closed the incision in mu ltiple layers using Vicryl sutures. Steri-Strips were applied to the skin. The patient was reversed from anesthesia, extubated, and transferred to recovery room in stable condition. There were no com plications. COMPLICATIONS: None. /[id number]/MODL
--- NOTE | 2017-06-14 18:08 | POSTANESTH ---
Post Anesthetic Evaluation Cardiovascular Status: Normal, Stable, Similar to Pre-Op Cond Respiratory Status: Normal, Stable, Similar to Pre-op Cond. Level of Consciousness/Mental Status: Can Participate in Eval, Alert and Oriented Pain Control: Adequate, Prn Tx Ordered Nausea/Vomiting Control: Adequate, Prn Tx Ordered Complications Possibly Related to Anesthesia: None Noted
[2017-06-14] MEDS: fentaNYL 100 MCG/2 ML INJ IVP PRN ×2 (18:34→19:20)
[2017-06-14] MEDS ORDERED: HYDROmorphONE/DILAUDID 2 MG/ML INJ ONE (19:11)
[2017-06-14] MEDS: SENNOSIDES/DOCUSATE SODIUM TAB PO SCH (21:08)
[2017-06-14] MEDS: FAMOTIDINE 20 MG TAB PO SCH (21:08)
[2017-06-14] MEDS: HYDROCODONE/APAP 5/325 TAB PO PRN (21:09)
[2017-06-14] MEDS: GABAPENTIN 300 MG CAP PO SCH (21:40)
[2017-06-14] MEDS ORDERED: ceFAZolin 2 GM/DEXTROSE 100 ML IV SCH (22:00)
[2017-06-14] MEDS ORDERED: PROPYLENE GLYCOL EACHEYE PRN (22:34)
[2017-06-14] MEDS ORDERED: NITROGLYCERIN 0.4 MG BTL SL PRN (22:34)
[2017-06-14] MEDS ORDERED: PEG EACHEYE PRN (22:34)
[2017-06-14] MEDS: ceFAZolin 2 GM/SWFI 2 GM/20 ML SYR IVP SCH (23:17)
[2017-06-14] MEDS: DORZOLAMIDE/TIMOLOL 10 ML OPHT.BTL LEFTEYE SCH (23:28)
[2017-06-14] MEDS: BRIMONIDINE 0.2% 5 ML OPHT.BTL LEFTEYE SCH (23:32)
[2017-06-15] MEDS: HYDROCODONE/APAP 5/325 TAB PO PRN (01:06)
[2017-06-15 05:29] LABS: PLATELET COUNT 142 10^3/uL (150-400)
[2017-06-15] MEDS: GABAPENTIN 300 MG CAP PO SCH (06:16)
[2017-06-15] MEDS: BRIMONIDINE 0.2% 5 ML OPHT.BTL LEFTEYE SCH (06:17)
[2017-06-15] MEDS: ceFAZolin 2 GM/SWFI 2 GM/20 ML SYR IVP SCH (06:19)
[2017-06-15] MEDS ORDERED: CYCLOBENZAPRINE 10 MG TAB PO PRN (07:22)
[2017-06-15] MEDS ORDERED: HYDROCODONE/APAP 5/325 TAB PO PRN (07:22)
[2017-06-15] MEDS ORDERED: CALCIUM CARBONATE 500 MG CHEWABLE TAB PO PRN (07:22)
--- NOTE | 2017-06-15 07:32 | NEUSURGPN ---
Date of Surgery: 06/14/17 Post Op Day: 1 Assessment/Plan: Assessment: 82 yr old male s/p right L2-3 BAILEY POD #1 Plan: -pt states that he has some lower back pain but leg feels better -admit for obs-plan for DC later today -pain control with current pain meds -PT/OT-pending this am -call NS with any changes or issues -take medications as directed -no bending or twisting -CDI Subjective: Awake and alert. NAD. Pt with some lower back pain. No venegas/neck/chest/abd or gu complaints. Objective: AAO x 3, PERRLA/EOMI no droop 5/5 BUE = 5/5 BLE = Sensation intact to light touch BLE Dressing CDI Neuro Check Frequency: per routine Urinary Catheter in Place: No - Physician Discussed Patient with .: Leif Patient Seen by : Leif Neurosurgery Physical Exam - Vitals, I&O, Labs I and O 06/14/17 06/15/17 06/16/17 05:59 05:59 05:59 Intake Total 1800 Output Total 850 Balance 950 Weight 81.647 kg Intake: Oral (ml) 400 IV Intake (ml) 1400 Output: Urine (ml) 650 Urinal 650 Estimated Blood Loss (ml) 200 Other: Number of Voids Urinal 1 Vital Signs Temp Pulse Resp BP Pulse Ox 36.8 C 67 16 102/60 96 06/15/17 04:00 06/15/17 04:00 06/15/17 04:00 06/15/17 04:00 06/15/17 04:00 Laboratory Results 06/15/17 04:41 06/15/17 04:41 ICD10 Worksheet Patient Problems: Problems Problem Status Onset Closed compression fracture of L4 lumbar vertebra Acute Influenza A Acute Intractable back pain Acute Lower back pain Acute Lumbar radiculopathy, right Acute Sciatica Acute
[2017-06-15 07:52] VITALS: BP 114/56
[2017-06-15] MEDS: SENNOSIDES/DOCUSATE SODIUM TAB PO SCH (08:05)
[2017-06-15] MEDS: FAMOTIDINE 20 MG TAB PO SCH (08:05)
[2017-06-15] MEDS: DORZOLAMIDE/TIMOLOL 10 ML OPHT.BTL LEFTEYE SCH (08:09)
[2017-06-15] MEDS ORDERED: SENNOSIDES/DOCUSATE SODIUM TAB PO SCH (09:00)
[2017-06-15] MEDS ORDERED: ATORVASTATIN CALCIUM 10 MG TAB PO SCH (09:00)
--- NOTE | 2017-06-15 11:58 | ASMTCMCOM ---
CM Note CM Note Notes: Pt medically stable for d/c. PT rec home. No CM d/c needs identified. Date Signed: 06/15/2017 11:58 AM Electronically Signed By:INEZ Newton
[2017-06-15] MEDS ORDERED: PANTOPRAZOLE SODIUM 40 MG TAB PO SCH (21:00)
[2017-06-15] MEDS ORDERED: GABAPENTIN 100 MG CAP PO SCH (21:00)
[2017-06-17] MEDS ORDERED: ENOXAPARIN 40 MG/0.4 ML SYR SC SCH (09:00)
== END 2017-06-15 10:55 | disposition home or self-care (01) ==
LOC: FSGY 12:40 → F3N 15:06
PROVIDERS: ADMIT Neurological Surgery; ATTEND Neurological Surgery
DX: M51.16 Intervertebral disc disorders with radiculopathy, lumbar region (principal); M48.061 Spinal stenosis, lumbar region without neurogenic claudication; M51.36 Other intervertebral disc degeneration, lumbar region; I48.91 Unspecified atrial fibrillation; I25.10 Atherosclerotic heart disease of native coronary artery without angina pectoris; H40.9 Unspecified glaucoma; K21.9 Gastro-esophageal reflux disease without esophagitis; I10 Essential (primary) hypertension; G47.33 Obstructive sleep apnea (adult) (pediatric); H54.8 Legal blindness, as defined in USA; Z87.442 Personal history of urinary calculi; Z95.0 Presence of cardiac pacemaker; Z95.5 Presence of coronary angioplasty implant and graft
CPT/HCPCS: 63030; 76001; 95941; 97161; G8978; G8979; G8980; J0171; J0690; J1030; J1100; J1170; J2405; J2704; J3010

== ENCOUNTER → 2017-11-16 | Outpatient (CLI) | payer OTHER, MEDICARE | LOC: CIMAGING 11:31 | PROVIDERS: ATTEND Nurse Practitioner | DX: M48.07 Spinal stenosis, lumbosacral region (principal); M51.36 Other intervertebral disc degeneration, lumbar region; M43.16 Spondylolisthesis, lumbar region | CPT/HCPCS: 72100-PO ==

== ENCOUNTER → 2018-03-02 | Outpatient (CLI) | payer OTHER, MEDICARE | LOC: CIMAGING 10:12 | DX: N28.1 Cyst of kidney, acquired (principal); I70.0 Atherosclerosis of aorta | CPT/HCPCS: 76705-PO ==